=== PATIENT | female | born 2000 | race Caucasian/White ===

== ENCOUNTER → 2023-10-17 11:27 | Outpatient (CLI) | payer BC, SELFPAY ==
--- NOTE | ~2023-10-17 | US_ITS ---
EXAMINATION: US OB <= 14 weeks fetus DATE: 10/17/2023 11:48 INDICATION: viability assessment during first trimester TECHNIQUE: Real-time pelvic transabdominal and transvaginal ultrasound was performed. COMPARISON: None. FINDINGS: The uterus measures 12.7 x 6.1 x 6.7 cm. There is an intrauterine gestational sac. A yolk s ac is identified. heart motion is identified measuring 161 beats per minute (bpm) by M-mode Dop pler. The crown rump length measures 1.6 cm, which correlates with an estimated gestational age of 8 weeks and 0 day(s) (+/-) 5 day(s). The right ovary measures 3.8 x 2.4 x 3.0 cm. The left ovary measures 3.0 x 1.2 x 1.5 cm. There is nor mal vascular flow in the ovaries. There is no free fluid in the pelvis. IMPRESSION: 1. Live intrauterine with an estimated gestational age of 8 weeks and 0 day(s) (+/-) 5 day( s) and an estimated delivery date of 05/28/2024. Reviewed, dictated and finalized at location L. DAMAGE ESTIMATOR IMPRESSION: 1. Live intrauterine with an estimated gestational age of 8 weeks and 0 day(s) (+/-) 5 day(s) and an estimated delivery date of 05/28/2024.
== END ==
PROVIDERS: PCP Advanced Practice Midwife; Visit Provider Advanced Practice Midwife
DX: O36.80X0 Pregnancy with inconclusive fetal viability, not applicable or unspecified (principal); Z3A.00 Weeks of gestation of pregnancy not specified
CPT/HCPCS: 76801

== ENCOUNTER 2023-11-03 21:36 | Emergency (ER) | payer BC, SELFPAY ==
[2023-11-03 21:59] VITALS: BP 113/54; PULSE 58; RESP 20; TEMP 36.7; O2SAT 100
[2023-11-04 00:39] VITALS: BP 117/73; PULSE 63; RESP 16; O2SAT 100
[2023-11-04 01:01] VITALS: BP 121/69; PULSE 52; RESP 11; O2SAT 100
[2023-11-04] MEDS: SODIUM CHLORIDE 0.9% IV 1,000 ML 999 ML IV CONT ×2 (01:15)
[2023-11-04] MEDS: METOCLOPRAMIDE HCL INJ 10 MG/2 ML VIAL IV PUSH (01:15)
[2023-11-04 01:31] VITALS: BP 105/62; PULSE 75; RESP 22; O2SAT 100
[2023-11-04] MEDS: diphenhydrAMINE HCl INJ 50 MG/ML VIAL 25 MG IV PUSH (01:42)
[2023-11-04 01:43] LABS: Basophils Absolute Auto 0.1 K/mm3 (0.0-0.1); Basophils Percent Auto 0.4 % (0.2-1.2); Eosinophils Absolute Auto 0.1 K/mm3 (0-0.3); Eosinophils Percent Auto 0.5 % (0-4.4); Hematocrit 43.1 % (37.0-47.0); Hemoglobin 14.3 g/dL (12.0-15.0); Immature Granulocyte Absolute 0.05 K/mm3 (0.00-0.031); Immature Granulocyte Percent A 0.3 % (0-0.5); Lymphocytes Absolute Auto 2.17 K/mm3 (0.9-3.2); Lymphocytes Percent Auto 14.8 % (18.3-44.2); Mean Corpuscular HGB Conc 33.2 g/dl (32-36); Mean Corpuscular Hemoglobin 26.6 pg (26-34); Mean Corpuscular Volume 80.3 fl (80-100); Mean Platelet Volume 9.5 fl (7.4-10.4); Monocytes Percent Auto 6.5 % (2.6-8.5); Neutrophils Absolute Auto 11.4 K/mm3 (1.3-6.7); Neutrophils Percent Auto 77.5 % (45.5-73.1); Platelet Count Result 243 k/mm3 (150-375); Red Blood Count 5.37 M/mm3 (4.2-5.4); Red Cell Distribution Width 13.6 % (11.5-14.5); White Blood Count 14.7 K/mm3 (4.5-10.0)
[2023-11-04 01:49] LABS: Alanine Aminotransferase 60 U/L (6-35); Albumin Level 4.7 g/dL (3.5-5.1); Alkaline Phosphatase 69 U/L (38-126); Anion Gap 13 mmol/L (8-16); Aspartate Amino Transferase 43 U/L (14-36); Bilirubin,Total 0.7 mg/dL (0.2-1.3); Blood Urea Nitrogen 8 mg/dL (7-17); Carbon Dioxide 22 mmol/L (22-30); Chloride 102 mmol/L (98-107); Estimated CRCL calculation 124 ml/min; Estimated Glomerular Filt Rate > 60; Glucose 78 mg/dL (65-110); Lipase 115 U/L (23-300); Magnesium 1.8 mg/dL (1.6-2.3); Potassium 3.5 mmol/L (3.4-5.0); Sodium 137 mmol/L (137-145)
[2023-11-04 02:01] VITALS: BP 93/48; PULSE 65; RESP 22; O2SAT 100
[2023-11-04 02:04] LABS: Appearance Urine Cloudy (Clear); Bacteria Urine 3+ /hpf; Bilirubin Urine Negative (Negative); Blood Urine Negative (Negative); Color Urine Dark Yellow (Yellow); Glucose Urine UA Negative (Negative); Ketones Urine 4+ mg/dL (Negative); Leukocyte Esterase Ur 2+ LEU/UL (Negative); Need Manual Microscopic Reviewed; Nitrate Urine Negative (Negative); Protein Urine 1+ mg/dL (Negative); Specific Grav Ur 1.035 (1.001-1.035); Squamous Epithelial Cell Urine Many /hpf (Few); WBC Urine 51-100 /hpf; pH Urine 5.5 (5.0-9.0)
[2023-11-04 02:06] LABS: Add Urine Microscopic? YES
--- NOTE | 2023-11-04 02:40 | ED.GENADULT ---
HPI - General Adult General Chief complaint: Nausea/Vomiting/Diarrhea Stated complaint: vomiting Time Seen by Provider: 11/04/23 00:47 History of Present Illness HPI narrative: Patient is a 23-year-old female at 11 weeks presents emerged from with chief complaint of nausea vomiting patient reports that she has had an ultrasound that confirmed intrauterine and her OBs office the patient states she sees Dr. Pena reports she has not been able to keep any fluids down denies fever reports a little bit of cramping in the abdomen no vaginal bleeding Related Data Allergies Allergy/AdvReac Type Severity Reaction Status Date / Time No Known Allergies Allergy Mild Unverified 11/03/23 21:36 Review of Systems Review of Systems: A 10 system review of systems was completed on the patient and is negative except for what is stated in the HPI. Nursing and ancillary documentation was reviewed. Exam Narrative: GENERAL: Well-appearing, well-nourished, and in no acute distress. HEAD: Normocephalic, atraumatic. EYES: PERRLA and EOMI. ENT: Nares clear, no rhinorrhea or epistaxis. Mucous membranes dry. NECK: Supple. CHEST: Clear to auscultation. No respiratory distress. HEART: Regular rate and rhythm. No murmur heard. Normal peripheral pulses. ABDOMEN: Soft, nontender, nondistended, normal active bowel sounds. EXTREMITIES: Normal range of motion. No edema. SKIN: Warm, dry, no rash. NEURO: No focal deficits. Alert and oriented x3. PSYCH: Normal mood and affect. Course Vital Signs Vital signs: Vital Signs Temperature 36.7 C 11/03/23 21:59 Pulse Rate 58 L 11/03/23 21:59 Respiratory Rate 20 11/03/23 21:59 Blood Pressure 113/54 L 11/03/23 21:59 Pulse Oximetry 100 11/03/23 21:59 Oxygen Delivery Room Air 11/03/23 21:59 Temperature 36.7 C 11/03/23 21:59 Pulse Rate 54 L 11/04/23 03:01 Respiratory Rate 17 11/04/23 03:01 Blood Pressure 107/46 L 11/04/23 03:01 Pulse Oximetry 99 11/04/23 03:01 Oxygen Delivery Room Air 11/03/23 21:59 Medical Decision Making MDM Narrative Medical decision making narrative: Differential diagnosis includes hyperemesis, dehydration, viral syndrome, UTI Laboratory studies were obtained patient total white count of 14.7 electrolytes showed a CO2 of 22 creatinine of 0.6 lipase was 115 urinalysis showed 4+ ketones 2+ leukocyte esterase 50-100 white blood cells and 3+ bacteria Patient received 2 L of IV fluids in the emergency department received IV Reglan and Benadryl the patient reports that her nausea vomiting is doing much better at this time and would like to try p.o. intake. The patient was given a g Rocephin for urinary tract infection if the patient able tolerate p.o. patient be discharged home on Keflex Vital Signs Vital Signs: Vital Signs Temperature 36.7 C 11/03/23 21:59 Pulse Rate 58 L 11/03/23 21:59 Respiratory Rate 20 11/03/23 21:59 Blood Pressure 113/54 L 11/03/23 21:59 Pulse Oximetry 100 11/03/23 21:59 Oxygen Delivery Room Air 11/03/23 21:59 Temperature 36.7 C 11/03/23 21:59 Pulse Rate 54 L 11/04/23 03:01 Respiratory Rate 17 11/04/23 03:01 Blood Pressure 107/46 L 11/04/23 03:01 Pulse Oximetry 99 11/04/23 03:01 Oxygen Delivery Room Air 11/03/23 21:59 Lab Data 11/04/23 01:05 11/04/23 01:05 Labs: Lab Results 11/04/23 Range/Units 01:05 WBC 14.7 H (4.5-10.0) K/mm3 RBC 5.37 (4.2-5.4) M/mm3 Hgb 14.3 (12.0-15.0) g/dL Hct 43.1 (37.0-47.0) % MCV 80.3 (80-100) fl MCH 26.6 (26-34) pg MCHC 33.2 (32-36) g/dl RDW 13.6 (11.5-14.5) % Plt Count 243 (150-375) k/mm3 MPV 9.5 (7.4-10.4) fl Immature Gran % (Auto) 0.3 (0-0.5) % Neut % (Auto) 77.5 H (45.5-73.1) % Lymph % (Auto) 14.8 L (18.3-44.2) % [place] % (Auto) 6.5 (2.6-8.5) % Eos % (Auto) 0.5 (0-4.4) % Baso % (Auto) 0.4 (0.2-1.2) % Lymph # (Auto) 2.1
[2023-11-04 03:01] VITALS: BP 107/46; PULSE 54; RESP 17; O2SAT 99
[2023-11-04 03:49] VITALS: BP 98/57; PULSE 57; RESP 17; O2SAT 98
== END 2023-11-04 03:50 | disposition home or self-care (01) ==
PROVIDERS: Emergency Provider Emergency Medicine; PCP Emergency Medicine
DX: O23.41 Unspecified infection of urinary tract in pregnancy, first trimester (principal); N39.0 Urinary tract infection, site not specified; O21.9 Vomiting of pregnancy, unspecified; Z3A.11 11 weeks gestation of pregnancy
CPT/HCPCS: 36415; 80053; 81001; 83690; 83735; 85025; 87086; 87088; 96361; 96365; 96375; 99284; J0696; J1200; J2765; J7030

== ENCOUNTER → 2023-12-26 10:51 | Outpatient (CLI) | payer BC, SELFPAY ==
--- NOTE | ~2023-12-26 | US_ITS ---
EXAMINATION: US OB /maternal detail DATE: 12/26/2023 11:23 INDICATION: Second trimester anatomic survey TECHNIQUE: Real-time ultrasound of the pelvis was performed. COMPARISON: None. FINDINGS: There is a single living fetus in vertex presentation. The placenta is anterior and 5.4 cm from the i nternal cervical os. The measured cervical length is 5.0 cm. heart rate is 139 beats per minute (bpm). cardiac activity and movement are noted. The amniotic fluid index is subjectivel y normal. The outflow tracts of the heart are not well evaluated due to gestational age. The following an atomy was identified as normal: 4 chamber heart 3 vessel cord cord insertion kidneys urinary bladder stomach spine diaphragm ventricles cisterna magna cerebellum The following biometric data were obtained: Biparietal diameter (BPD): 4.1 cm; head circumference (HC): 15.3 cm; abdominal circumference (AC): 12 .2 cm; femur length (FL): 2.4 cm. These measurements are concordant. Estimated weight is 206 g +/- 31 g, which correlates with the 28th percentile when 05/28/2024 is used as estimated date of delivery. As single measurements, these parameters are each equal to the following estimated gestational ages w ith ranges of +/- 2 standard deviations: BPD: 18 weeks 3 days ( 16 weeks 5 days - 20 weeks 1 days). HC: 18 weeks 2 days ( 16 weeks 6 days - 19 weeks 6 days). AC: 17 weeks 6 days ( 16 weeks 1 days - 19 weeks 4 days). FL: 17 weeks 3 days ( 16 weeks 0 days - 18 weeks 5 days). estimated gestational age based solely on measurements from this exam is 18 weeks 0 days +/- 1 weeks 2 days. IMPRESSION: 1. Single living fetus in vertex presentation. 2. Estimated weight is 206 g +/- 31 g, which correlates with the 28th percentile when 05/28/2024 is used as estimated date of delivery. Reviewed, dictated and finalized at location L. CTOR DIGITAL CATALOGUE IMPRESSION: 1. Single living fetus in vertex presentation. 2. Estimated weight is 206 g +/- 31 g, which correlates with the 28th per centile when 05/28/2024 is used as estimated date of delivery.
== END ==
PROVIDERS: PCP Advanced Practice Midwife; Visit Provider Advanced Practice Midwife
DX: Z36.9 Encounter for antenatal screening, unspecified (principal)
CPT/HCPCS: 76805

== ENCOUNTER 2024-03-22 05:26 | Observation (INO) | payer BC, SELFPAY ==
[2024-03-22] VITALS (16 sets, daily range): BP systolic 88–119; BP diastolic 28–68; PULSE 79–131; RESP 20; TEMP 36.9; O2SAT 99–100
--- NOTE | ~2024-03-22 | US_ITS ---
Limited Abdominal Sonogram: Real-time sonographic imaging of the right upper quadrant was performed. Clinical History: Abdominal pain Findings: The liver appears normal with no evidence of mass lesion or bile duct dilatation. Main por jeronimo vein demonstrates normal direction of flow. The gallbladder is well distended, and appears normal with no evidence of gallstone or wall thickening. The common bile duct is not well seen, but there i s no clear dilatation. The visualized pancreas, aorta, and IVC are unremarkable. Impression: No significant abnormality seen. Reviewed, dictated and finalized at location M. Impression: No significant abnormality seen.
--- NOTE | 2024-03-22 07:00 | OBADM ---
This patient, Penny Raymond, admitted to the OB room OB Post 117 for observation. Patient/family oriented to hospital policies and general routines including ID bracelet, bed and alarms, visiting hours, pain management, procedures, bathroom and other care routines, personal items, smoking policy, room service/diet, and visiting hours. Patient/Family are encouraged to report perceived risks to care and to ask questions if they do not understand what they are told or what they should do.
[2024-03-22] MEDS: DEXTROSE 5%/LACTATED RINGERS 1,000 ML 999 ML IV CONT (07:08)
[2024-03-22] MEDS: ONDANSETRON INJ 4 MG/2 ML VIAL IV PUSH ×3 (07:08→16:09)
[2024-03-22 07:30] LABS: Basophils Percent Auto 0.2 % (0.2-1.2); Eosinophils Percent Auto 0.2 % (0-4.4); Hematocrit 35.9 % (37.0-47.0); Hemoglobin 11.6 g/dL (12.0-15.0); Immature Granulocyte Absolute 0.08 K/mm3 (0.00-0.031); Immature Granulocyte Percent A 0.6 % (0-0.5); Lymphocytes Absolute Auto 0.35 K/mm3 (0.9-3.2); Lymphocytes Percent Auto 2.7 % (18.3-44.2); Mean Corpuscular HGB Conc 32.3 g/dl (32-36); Mean Corpuscular Hemoglobin 26.2 pg (26-34); Mean Corpuscular Volume 81.2 fl (80-100); Mean Platelet Volume 9.5 fl (7.4-10.4); Monocytes Absolute Auto 0.6 K/mm3 (0.1-0.6); Monocytes Percent Auto 4.5 % (2.6-8.5); Neutrophils Absolute Auto 11.8 K/mm3 (1.3-6.7); Neutrophils Percent Auto 91.8 % (45.5-73.1); Platelet Count Result 226 k/mm3 (150-375); Red Blood Count 4.42 M/mm3 (4.2-5.4); Red Cell Distribution Width 12.6 % (11.5-14.5); White Blood Count 12.9 K/mm3 (4.5-10.0)
[2024-03-22 07:32] LABS: Alanine Aminotransferase 18 U/L (6-35); Albumin Level 3.7 g/dL (3.5-5.1); Alkaline Phosphatase 98 U/L (38-126); Anion Gap 8 mmol/L (4-12); Aspartate Amino Transferase 23 U/L (14-36); Bilirubin,Total 0.6 mg/dL (0.2-1.3); Blood Urea Nitrogen 10 mg/dL (7-17); Calcium 8.9 mg/dL (8.4-10.2); Carbon Dioxide 19 mmol/L (22-30); Chloride 109 mmol/L (98-107); Estimated Glomerular Filt Rate > 60; Glucose 92 mg/dL (65-110); Potassium 3.5 mmol/L (3.4-5.0); Sodium 136 mmol/L (137-145)
[2024-03-22] MEDS: DEXTROSE 5%/LACTATED RINGERS 1,000 ML 150 ML IV CONT (09:02)
[2024-03-22] MEDS: FAMOTIDINE 20 MG/2 ML VIAL IV PUSH (09:03)
--- NOTE | 2024-03-22 09:11 | PC.NURSE ---
Patient informed of lab results and US results. Patient states that she is feeling a little better, but the nausea still comes in waves.
--- NOTE | 2024-03-22 09:13 | PC.NURSE ---
Dr Pena informed of periods of cont nausea, lab results and US results. Orders to cont with IV hydration and may dc home when patient is feeling a bit better.
--- NOTE | 2024-03-22 14:30 | PC.NURSE ---
Patient states that she is feeling a bit better, wanting to try to eat some crackers and see how that goes.
--- NOTE | 2024-03-25 09:00 | P.PNOB_ITS ---
OB - Triage/Final Diagnosis Visit Information Reason for evaluation: other ( nausea and vomiting secondary to viral gastroente ritis in ) Comments/Additional reasons for admission: I have assessed the risk for this patient, Penny Raymond, and determined that she would benefit from observation care. Evaluation Laboratory results: Laboratory Tests 03/22/24 07:10 WBC 12.9 H RBC 4.42 Hgb 11.6 L Hct 35.9 L MCV 81.2 MCH 26.2 MCHC 32.3 RDW 12.6 Plt Count 226 MPV 9.5 Immature Gran % (Auto) 0.6 H Neut % (Auto) 91.8 H Lymph % (Auto) 2.7 L [place] % (Auto) 4.5 Eos % (Auto) 0.2 Baso % (Auto) 0.2 Lymph # (Auto) 0.35 L [place] # (Auto) 0.6 Eos # (Auto) 0.0 Baso # (Auto) 0.0 Abs Immat Gran (auto) 0.08 H Absolute Neuts (auto) 11.8 H Absolute Nucleated RBC 0.000 Nucleated RBC % 0.0 Sodium 136 L Potassium 3.5 Chloride 109 H Carbon Dioxide 19 L Anion Gap 8 BUN 10 Creatinine 0.60 L Estim Creat Clear Calc Not Reportable Estimated GFR > 60 Glucose 92 Calcium 8.9 Total Bilirubin 0.6 AST 23 ALT 18 Alkaline Phosphatase 98 Total Protein 7.0 Albumin 3.7
== END 2024-03-22 16:11 | disposition home or self-care (01) ==
PROVIDERS: Admitting Provider Obstetrics & Gynecology Gynecology; PCP Advanced Practice Midwife; Visit Provider Obstetrics & Gynecology Gynecology
DX: O99.613 Diseases of the digestive system complicating pregnancy, third trimester (principal); A08.4 Viral intestinal infection, unspecified; Z3A.30 30 weeks gestation of pregnancy
CPT/HCPCS: 36415; 76705; 80053; 85025; 96361; 96368; 96374; 96375; G0378; G0379; J2405; J7121

== ENCOUNTER 2024-04-17 11:17 | Outpatient (CLI) | payer BC, SELFPAY ==
--- NOTE | ~2024-04-17 | US_ITS ---
EXAMINATION: US OB follow up DATE: 04/17/2024 11:42 INDICATION: Estimated size less than expected for estimated gestational age during third trimes ter TECHNIQUE: Real-time ultrasound of the pelvis was performed. The interpreting radiologist was not pre sent for the study. COMPARISON: None. FINDINGS: There is a single living fetus in vertex presentation. The placenta is anterior and not low-lying al though the region of the cervix is obscured by the skull. heart rate is 130 beats per min holly (bpm). The amniotic fluid index is 17.4 cm, which is normal (5th%-95%: 8.1-24.8 cm at 33 weeks e stimated gestational age). The following biometric data were obtained: BPD: 8.4 cm -> 33 weeks 6 days Head circumference: 31.0 cm -> 34 weeks 5 days Abdominal circumference: 29.3 cm -> 33 weeks 2 days Femur length: 6.1 cm -> 31 weeks 4 days These measurements are concordant. Head circumference to abdominal circumference ratio: 1.06 (normal range 0.95-1.11). Estimated weight: 2092 g (+/-) 314 g or 4 lbs. 10 oz. (+/-) 11 oz. IMPRESSION: 1. Single living fetus in vertex presentation with heart rate of 130 bpm. 2. Normal amniotic fluid index of 17.4 cm. 3. Estimated weight is 15th percentile by Hadlock criteria when 05/28/2024 is used as the estima stewart date of delivery (RACHEL). Please correlate with clinical information or earlier ultrasounds for mos t accurate RACHEL. Reviewed, dictated and finalized at location A. IMPRESSION: 1. Single living fetus in vertex presentation with heart rate of 130 bpm. 2. Normal amniotic fluid index of 17.4 cm. 3. Estimated weight is 15th percentile by Hadlock criteria when 05/28/2024 is used as the estimated date of delivery (RACHEL). Please correlate with clinica l information or earlier ultrasounds for most accurate RACHEL.
== END 2024-04-17 11:18 ==
LOC: MICIMG 11:18
PROVIDERS: PCP Advanced Practice Midwife; Visit Provider Advanced Practice Midwife
DX: O36.5930 Maternal care for other known or suspected poor fetal growth, third trimester, not applicable or unspecified (principal); Z3A.00 Weeks of gestation of pregnancy not specified
CPT/HCPCS: 76816

== ENCOUNTER 2024-05-20 04:54 | Inpatient (IN) | payer BC, SELFPAY ==
[2024-05-20] VITALS (124 sets, daily range): BP systolic 66–162; BP diastolic 43–108; PULSE 47–201; RESP 17; TEMP 36.3–37.3; O2SAT 92–100; BMI 28.8
[2024-05-20 05:37] LABS: Basophils Absolute Auto 0.1 K/mm3 (0.0-0.1); Basophils Percent Auto 0.6 % (0.2-1.2); Eosinophils Absolute Auto 0.2 K/mm3 (0-0.3); Eosinophils Percent Auto 1.7 % (0-4.4); Hematocrit 32.7 % (37.0-47.0); Hemoglobin 10.5 g/dL (12.0-15.0); Immature Granulocyte Absolute 0.08 K/mm3 (0.00-0.031); Immature Granulocyte Percent A 0.7 % (0-0.5); Lymphocytes Percent Auto 23.3 % (18.3-44.2); Mean Corpuscular HGB Conc 32.1 g/dl (32-36); Mean Corpuscular Hemoglobin 24.2 pg (26-34); Mean Corpuscular Volume 75.3 fl (80-100); Mean Platelet Volume 9.6 fl (7.4-10.4); Monocytes Absolute Auto 0.9 K/mm3 (0.1-0.6); Monocytes Percent Auto 7.5 % (2.6-8.5); Neutrophils Absolute Auto 7.7 K/mm3 (1.3-6.7); Neutrophils Percent Auto 66.2 % (45.5-73.1); Platelet Count Result 235 k/mm3 (150-375); Red Blood Count 4.34 M/mm3 (4.2-5.4); Red Cell Distribution Width 14.1 % (11.5-14.5); White Blood Count 11.6 K/mm3 (4.5-10.0)
--- NOTE | 2024-05-20 05:38 | LDADM ---
This patient, Penny Raymond, was admitted to Labor/Delivery/Recovery 108 on 05/20/24 at 04:54. Plans for labor, pain management and were discussed with patient. Patient/family oriented to hospital policies and general routines including ID bracelet, bed and alarms, visiting hours, pain management, procedures, bathroom and other care routines, personal items, smoking policy, room service/diet and guest tray routines, security routines, and visiting hours. Patient/Family are encouraged to report perceived risks to care and to ask questions if they do not understand what they are told or what they should do. See OBIX for further documentation.
[2024-05-20] MEDS: LACTATED RINGERS 1,000 ML 125 ML IV CONT ×2 (05:56→08:59)
[2024-05-20] MEDS: OXYTOCIN 30 UNITS/NS 500 ML 30 UNITS/500 ML BAG 6 UNITS IV CONT (05:56)
[2024-05-20 06:29] LABS: HIV 1/2 Ab P24 Ag Result Negative (Negative)
[2024-05-20] MEDS: ONDANSETRON INJ 4 MG/2 ML VIAL IV PUSH (06:45)
[2024-05-20 07:11] LABS: Rapid Plasma Reagin Non-Reactive (NonReactive)
[2024-05-20] MEDS: fentaNYL CITRATE INJ (*CRX) 100 MCG/2 ML VIAL 50 MCG IV PUSH (08:56)
--- NOTE | 2024-05-20 09:27 | WPDANESEPP ---
Anes - Eval Pre Procedure Procedure: Labor Epidural Date/Time: 05/20/24 09:27 Surgeon: Becky Preop Diagnosis: Labor Pain Pre Op Diagnosis: IOL Patient Data Age: 24 Gender: F Height: 1.63 m Weight: 76 kg Last Vital Signs Temp 36.4 C 05/20/24 07:42 Pulse 76 05/20/24 09:24 BP 103/47 L 05/20/24 09:24 Pulse Ox 97 05/20/24 09:26 O2 Del Method Room Air 05/20/24 05:00 Allergies Allergy/AdvReac Type Severity Reaction Status Date / Time No Known Allergies Allergy Mild Verified 04/30/24 13:23 Home Medications Medication Instructions Recorded Confirmed Type ondansetron 4 mg disintegrating 4 mg PO Q6H PRN Nausea #10 tabs 03/22/24 04/30/24 Rx tablet vits no.126-ferrous fum 1 tablet PO DAILY 04/30/24 04/30/24 History 28 mg iron-folic acid 800 mcg tablet (Classic ) Laboratory Tests 05/20/24 05/20/24 05:06 07:28 WBC 11.6 H K/mm3 (4.5-10.0) RBC 4.34 M/mm3 (4.2-5.4) Hgb 10.5 L g/dL (12.0-15.0) Hct 32.7 L % (37.0-47.0) MCV 75.3 L fl (80-100) MCH 24.2 L pg (26-34) MCHC 32.1 g/dl (32-36) RDW 14.1 % (11.5-14.5) Plt Count 235 k/mm3 (150-375) MPV 9.6 fl (7.4-10.4) Immature Gran % (Auto) 0.7 H % (0-0.5) Neut % (Auto) 66.2 % (45.5-73.1) Lymph % (Auto) 23.3 % (18.3-44.2) [place] % (Auto) 7.5 % (2.6-8.5) Eos % (Auto) 1.7 % (0-4.4) Baso % (Auto) 0.6 % (0.2-1.2) Lymph # (Auto) 2.70 K/mm3 (0.9-3.2) [place] # (Auto) 0.9 H K/mm3 (0.1-0.6) Eos # (Auto) 0.2 K/mm3 (0-0.3) Baso # (Auto) 0.1 K/mm3 (0.0-0.1) Abs Immat Gran (auto) 0.08 H K/mm3 (0.00-0.031) Absolute Neuts (auto) 7.7 H K/mm3 (1.3-6.7) Absolute Nucleated RBC 0.000 K/mm3 (0.0-0.012) Nucleated RBC % 0.0 % (0.0-0.2) RPR Non-reactive (NonReactive) HIV 1&2 Ab/P24 Ag 4thGn Negative (Negative) Blood Type A Positive Antibody Screen Negative : gestational age (RACHEL 05/25/24, ) Patient hx anesthesia problems: none Family hx anesthesia problems: none Results Review: All pre-operative results and documents have been reviewed as part of the pre-operative evaluation. FORMERLY [facility], [facility] Family History Family History Other No pertinent family history Social History Social History Smoking status: Never smoker Second hand tobacco smoke exposure: No Substance use: never Do You Feel Safe in your Home?: Yes Lack of Transportation: No Lack of Food: Never True Current Housing: I Have Housing Concerned About Future Housing: No Difficulty Paying Gas/Electric Bills: No Difficulty Paying for Meds: No Currently Unemployed: YES Education: High School Diploma/GED Difficulty w/ Childcare or Family Care: No Spiritual care concerns: No Exam Day of Procedure 05/20/24 09:27 Patient weight: normal Heart: regular rate and rhythm Lungs: normal air movement Airway: Mallampati scale class II Neurological: alert and oriented
--- NOTE | 2024-05-20 10:03 | WPDOBADMIT ---
Obstetrics - Admit Note Admission Note: record reviewed. No pertinent additions to the history and/or any subsequent changes in the physical findings that are not consistent with the expected course of the were found. Additions to the history and/or subsequent changes in the physical findings follow. Here for MIL. Cervix 2-3/50/-2 Vertex, AROM with clear fluid. FHTs category I. Continue pitocin.
--- NOTE | 2024-05-20 14:22 | P.PCNOB_ITS ---
OB - Vaginal Delivery Note Procedure Delivery date: 05/20/24 Induction method: AROM and Per Pitocin Protocol Delivery monitor: External FHT and External Uterine Route of delivery: Episiotomy description: None Laceration Description: Perineal - 2nd Degree Delivery repair: vicryl (3-0) Specimen: No Quantitative Blood Loss (ml): 500 Anesthesia type: Epidural Disposition: Floor Complications: No immediate complications [place] Baby Date of : 05/20/24 Weeks of gestation at delivery: 39 gender: Male presentation: vertex position: Right Occiput Anterior Placenta delivery description: Spontaneous Cord Vessel Description: 3 Vessels, Nuchal Cord (x2), Reduced (x1) and Delayed Cord Clamping score one minute: 8 score five minutes: 9
--- NOTE | 2024-05-20 14:23 | PM.OBDSVD ---
DS: Admitting Diagnosis Discharge Date 05/22/24 Admitting Diagnosis IUP 39 wks MIL DS: Discharge Diagnosis Discharge Diagnosis (1) (normal spontaneous vaginal delivery): Code(s): O80 - Encounter for full-term uncomplicated delivery Status: Acute OB - DS: Summary OB Procedures : Ultrasound OB Procedures Intrapartum: Spontaneous Vag Delivery OB Procedures: : None Peripartum Data Infant Delivery Method: Natural Vaginal Laceration Description: Perineal - 2nd Degree Episiotomy description: None complications: none Status at Discharge Functional status at discharge: independent ambulation Overall status at discharge: patient is progressing back to baseline Time Spent with Patient Time attestation: Total time spent providing and/or coordinating discharge services: DS: Data Data Completed and Pending Labs on day of discharge: Labs from last 24 hours 05/20/24 05/20/24 07:28 05:06 WBC 11.6 H RBC 4.34 Hgb 10.5 L Hct 32.7 L MCV 75.3 L MCH 24.2 L MCHC 32.1 RDW 14.1 Plt Count 235 MPV 9.6 Immature Gran % (Auto) 0.7 H Neut % (Auto) 66.2 Lymph % (Auto) 23.3 [place] % (Auto) 7.5 Eos % (Auto) 1.7 Baso % (Auto) 0.6 Lymph # (Auto) 2.70 [place] # (Auto) 0.9 H Eos # (Auto) 0.2 Baso # (Auto) 0.1 Abs Immat Gran (auto) 0.08 H Absolute Neuts (auto) 7.7 H Absolute Nucleated RBC 0.000 Nucleated RBC % 0.0 RPR Non-reactive HIV 1&2 Ab/P24 Ag 4thGn Negative Blood Type A Positive Antibody Screen Negative Discharge Plan Discharge Attending physician on discharge: Nahomy Pena Discharging Clinician: Nahomy Pena Anticipated Discharge Date/Time: 05/22/24 14:24 Patient Disposition: Home, Self-Care Activity: may shower and pelvic rest Diet: regular Patient Instructions: Antibiotic Form Stand Alone Forms: General Discharge Information Follow-up/Referrals: Nahomy Pena MD [Physician] - 6 Weeks Discharge Medications: Continued Classic 28 mg iron- 800 mcg Tablet 1 tablet PO DAILY Discontinued ondansetron 4 mg Tablet,Disintegrating 4 mg PO Q6H PRN (Reason: Nausea) Qty: 10 0RF Date of admission: 05/20/24 04:54 Primary Care Provider: Uzair,Adama Mena Admitting Provider: Nahomy Pena Attending physician on admission: Nahomy Pena Condition: Stable
[2024-05-20] MEDS: OXYTOCIN 30 UNITS/NS 500 ML 30 UNITS/500 ML BAG 999 UNITS IV CONT (14:42)
[2024-05-20] MEDS: ACETAMINOPHEN 325 MG TABLET 650 MG PO (15:48)
--- NOTE | 2024-05-20 17:40 | OBPPTRN ---
Patient transferred to post room #292 via wheelchair. Support person present. Oriented to unit, room, information board, rooming in, admission packet and security measures. Patient verbalizes understanding.
[2024-05-20] MEDS: IBUPROFEN 600 MG TABLET PO (18:55)
[2024-05-20] MEDS: CALCIUM CARBONATE (TUMS) 500 MG (200 MG ELEMENTAL) PO (19:44)
[2024-05-21] VITALS: BP 96/61; PULSE 85; RESP 16; TEMP 36.6; O2SAT 99
[2024-05-21] MEDS: ONDANSETRON INJ 4 MG/2 ML VIAL IV PUSH (02:13)
[2024-05-21] MEDS: CALCIUM CARBONATE (TUMS) 500 MG (200 MG ELEMENTAL) PO (02:14)
[2024-05-21] MEDS: ACETAMINOPHEN 325 MG TABLET 650 MG PO ×2 (02:14→18:58)
[2024-05-21 05:42] LABS: Hematocrit 27.4 % (37.0-47.0); Hemoglobin 8.4 g/dL (12.0-15.0)
[2024-05-21 07:05] VITALS: BP 97/45; PULSE 57; RESP 16; TEMP 36.6; O2SAT 99
[2024-05-21] MEDS: IBUPROFEN 600 MG TABLET PO (07:22)
[2024-05-21] MEDS: MULTIVIT/MIN/PREN/FOL AC/IRON TABLET 1 TAB PO (07:23)
[2024-05-21] MEDS: SIMETHICONE 80 MG TAB.CHEW PO (07:24)
[2024-05-21] MEDS: DOCUSATE SODIUM 100 MG CAPSULE PO ×2 (07:24→15:21)
[2024-05-21] MEDS: POLYSACCHARIDE IRON COMPLEX 150 MG CAPSULE PO ×2 (07:24→15:21)
--- NOTE | 2024-05-21 07:46 | PM.OBPNVD ---
OB - PN: Subj Subjective Date/time seen: 05/21/24 07:46 Patient comments: no complaints and pain well controlled baby status: doing well OB - PN: Obj Data Labs 05/21/24 04:05 Labs: Laboratory Results - last 24 hr 05/20/24 05/21/24 07:28 04:05 Hgb 8.4 L Hct 27.4 L Blood Type A Positive Antibody Screen Negative OB - PN A/P Plan day: 1 Plan: routine care Time Spent With Patient Time: Total time spent is greater than 50% in coordination of care (as documented) at patient's floor/unit and/or counseling patient: Exam : Bimanual exam- vagina & uterus: other (Uterus firm, nt @U)
--- NOTE | 2024-05-21 09:45 | PC.NURSE ---
Mother verbalizes she is able to independently latch with appropriate positioning and alignment. She has some nipple soreness and is responsively . is currently meeting outcomes for weight, output, jaundice, blood sugar and feeding frequencies of 8-12 times in 24 hours. Encouraged mother to call out today for a latch check. Mother declines any additional assistance or education at this time. Mother is encouraged to call for assistance if her infant doesn?t latch, pain with latching, questions or concerns. Mother voiced understanding of information shared along with the mom/baby guide for an additional resource. Reported to the Primary RN.
--- NOTE | 2024-05-21 11:10 | WPDANLDPN2 ---
Anes-Prog Note L&D Date/Time: 05/21/24 11:10 Comfortable throughout: labor and delivery Neuraxial method: epidural Epidural/Spinal procedure site: tender Neuro status: Neuro function grossly intact. Cardiovascular status: normal Respiratory status: normal Airway patency: baseline Mental status: baseline Post-Op hydration status: normal Vital Signs: Last Vital Signs Temp 36.6 C 05/21/24 07:05 Pulse 57 L 05/21/24 07:05 Resp 16 05/21/24 07:05 BP 97/45 L 05/21/24 07:05 Pulse Ox 99 05/21/24 07:05 O2 Del Method Room Air 05/21/24 07:24 Pain score (VAS): 5/10 I/O: Intake & Output 05/20/24 05/21/24 05/21/24 23:59 07:59 15:59 Output Total 50 Balance -50 Post-procedural complaints: none Patient feedback: Patient satisfied with anesthetic care.
[2024-05-21 11:58] VITALS: BP 110/58; PULSE 77; RESP 16; TEMP 36.7; O2SAT 100
[2024-05-21 20:00] VITALS: BP 111/66; PULSE 78; RESP 18; TEMP 37.1; O2SAT 98
[2024-05-22] MEDS: ONDANSETRON HCL ODT 4 MG TABLET PO (04:19)
[2024-05-22] MEDS: CALCIUM CARBONATE (TUMS) 500 MG (200 MG ELEMENTAL) PO (04:19)
--- NOTE | 2024-05-22 07:33 | PM.OBPNVD ---
OB - PN: Subj Subjective Date/time seen: 05/22/24 07:33 Patient comments: no complaints and pain well controlled baby status: doing well OB - PN: Obj Data Labs 05/21/24 04:05 OB - PN A/P Plan day: 2 Plan: routine care and follow up 6 weeks Time Spent With Patient Time: Total time spent is greater than 50% in coordination of care (as documented) at patient's floor/unit and/or counseling patient: Exam : Bimanual exam- vagina & uterus: other (Uterus firm, nt @U)
[2024-05-22 09:00] VITALS: BP 104/56; PULSE 66; RESP 16; TEMP 36.6; O2SAT 100
--- NOTE | 2024-05-22 09:35 | PC.NURSE ---
Consulted with mother concerning needs and she shared her ability to independently latch infant optimally without consistent pain or pinching. Mom does have initial latch on tenderness that dissipates with feeding. Mother is feeding appropriately for growth of infant and understands stimulating infant to eat if needed. Mother has done some combo feeding, reviewed supply and demand an continuing frequent breast stimulation for good milk production. has had appropriate feedings in the last 24 hours meets the outcomes for weight, output, blood sugar and jaundice at this time. Reinforced understanding of milk production, transition of milk, signs of adequate intake, transition of stool, prevention/relief of engorgement, responsive watching for feeding cues, the different methods of stimulating infant to breastfeed 1-3 hours after the start of the last feeding, community resources, and when to call a provider using the resource of the feeding sheet along with the mom and baby guide. Mother voiced understanding of the information shared, is confident to continue effectively her infant at home, when to call for assistance, denies any additional assistance or education at this time. Reported to the Primary RN.
[2024-05-22] MEDS: IBUPROFEN 600 MG TABLET PO (09:41)
[2024-05-22] MEDS: ACETAMINOPHEN 325 MG TABLET 650 MG PO (09:42)
[2024-05-22] MEDS: MULTIVIT/MIN/PREN/FOL AC/IRON TABLET 1 TAB PO (09:43)
[2024-05-22] MEDS: POLYSACCHARIDE IRON COMPLEX 150 MG CAPSULE PO (09:43)
[2024-05-22] MEDS: DOCUSATE SODIUM 100 MG CAPSULE PO (09:44)
[2024-05-22] MEDS: WITCH HAZEL 40 PADS 1 PAD TOPICAL (09:55)
[2024-05-22] MEDS: BENZOCAINE 20% AER SPR (*SP) 56 GM CAN 1 SPRAY TOPICAL (09:55)
[2024-05-23 10:55] VITALS: BP 116/58; PULSE 53; RESP 18; TEMP 36.4; O2SAT 100
== END 2024-05-22 14:05 | disposition home or self-care (01) | DRG 807 ==
LOC: ANHLDR 14:24 → ANHOB2 17:44
PROVIDERS: Admitting Provider Obstetrics & Gynecology Gynecology; PCP Emergency Medicine; Visit Provider Obstetrics & Gynecology Gynecology
DX: O69.81X0 Labor and delivery complicated by cord around neck, without compression, not applicable or unspecified (principal); Z37.0 Single live birth; O70.1 Second degree perineal laceration during delivery; Z3A.39 39 weeks gestation of pregnancy
CPT/HCPCS: 36415; 85014; 85018; 85025; 86592; 86703; 86850; 86900; 86901; A9270; G0432; J2405; J2590; J2795; J3010; J7120

== ENCOUNTER 2025-08-23 11:33 | Emergency (ER) | payer BC, SELFPAY ==
--- NOTE | ~2025-08-23 | XR_ITS ---
Examination: XR chest 2V Clinical History: cough, FEVER Comparison: None Technique: PA and Lateral Findings: Cardiomediastinal silhouette normal size and configuration. Patchy opacity right upper lobe. No acute bony abnormality. IMPRESSION: 1. Right upper lobe pneumonia. Reviewed, dictated and finalized at location R.
[2025-08-23 12:40] VITALS: BP 107/47; PULSE 50; RESP 18; O2SAT 98
[2025-08-23 12:45] VITALS: O2SAT 97
--- NOTE | 2025-08-23 13:24 | ED.URI ---
HPI - URI/Sore Throat General Chief Complaint: Upper Respiratory Infection Stated Complaint: Fever, cough, congestion, Time Seen by Provider: 08/23/25 12:16 History of Present Illness HPI Narrative: This is a 25-year-old female with no significant past medical history presents to ED for cough and fever. Patient states that for the past few days, she has been on getting a cough but this became worse yesterday and is now productive of yellow-green sputum. She also developed fevers has 103.3. She continues having symptoms today prompting her to come to the ED. she is a non smoker. Related Data Home Medications ?Medication ?Instructions ?Recorded ?Confirmed ?Last Taken ?Type vits no.126-ferrous fum 1 tablet PO DAILY 04/30/24 04/30/24 1 Day Ago History 28 mg iron-folic acid 800 mcg ~04/29/24 tablet (Classic ) Allergies Allergy/AdvReac Type Severity Reaction Status Date / Time No Known Allergies Allergy Mild Verified 08/23/25 11:35 Review of Systems Review of Systems: Gen.: Denies fevers or chills Eyes: Denies eye pain or visual change ENT: Denies congestion Respiratory: As per HPI CV: Denies chest pain or palpitations GI: Denies abdominal pain nausea, emesis or diarrhea denies burning, urgency, frequency or hematuria Musculoskeletal: Denies back pain or muscle pain Neuro: Denies numbness, tingling, weakness or focal weakness Skin: Denies rash Except as documented, all other systems reviewed and negative [facility] Family History Family History Other No pertinent family history Social History Social History Smoking status: Never smoker Second hand tobacco smoke exposure: No Substance use: never Do You Feel Safe in your Home?: Yes Lack of Transportation: No Lack of Food: Never True Current Housing: I Have Housing Concerned About Future Housing: No Difficulty Paying Gas/Electric Bills: No Difficulty Paying for Meds: No Currently Unemployed: YES Education: High School Diploma/GED Difficulty w/ Childcare or Family Care: No Spiritual care concerns: No Exam Narrative: APPEARANCE: No acute distress, nontoxic, resting in bed EYES: EOMI HEENT: Normocephalic, atraumatic, OMM RESPIRATORY: No respiratory distress. faint rhonchi in the right upper lobe CARDIOVASCULAR: Regular rate and rhythm without murmurs rubs or gallops. ABDOMINAL: Soft, nontender, nondistended, no rebound or guarding MUSCULOSKELETAl: Moves all extremities. No clubbing, cyanosis or edema. NEURO: Awake and alert. Following commands, speech normal, no focal deficits SKIN:: Warm, dry. No rashes lesions or abrasions PSYCHIATRIC: Normal affect/mood, Course Vital Signs Vital signs: Vital Signs Pulse Rate 50 L 08/23/25 12:40 Respiratory Rate 18 08/23/25 12:40 Blood Pressure 107/47 L 08/23/25 12:40 Pulse Oximetry 98 08/23/25 12:40 Oxygen Delivery Room Air 08/23/25 12:40 Pulse Rate 50 L 08/23/25 12:40 Respiratory Rate 18 08/23/25 12:40 Blood Pressure 107/47 L 08/23/25 12:40 Pulse Oximetry 97 08/23/25 12:45 Oxygen Delivery Room Air 08/23/25 12:45 MDM - URI/Sore Throat MDM Narrative Medical decision making narrative: 25-year-old female presenting for flu-like symptoms. On initial evaluation, patient was in no acute distress, afebrile, hemodynamically stable. She did have faint rhonchus to her right upper lobe. Remaining exam within normal limits. Chest x-ray did reveal right upper lobe pneumonia. COVID/flu/RSV negative. Patient is otherwise healthy. She will be given a prescription for Augmentin. She was advised follow-up with her PCP in the next week for re-evaluation. Patient was agreeable to this plan. Given strict return precautions. Differential Diagnosis Differential diagnosis: Likely upper respiratory infection, sinusitis, viral infection, bronchitis, influenza and other (CAP) Medical Records Attestation: I reviewed the patient's medical records. Lab Data Attestation: I reviewed the patient's lab results. Labs: Lab Results 08/23/25 Range/Units 12:43 Influenza A (RT-PCR) Negative (Negative) Influenza B (RT-PCR) Negative (Negative) RSV (RT-PCR) Negative (Negative) SARS-CoV-2 RNA (RT-PCR) Negative (Negative) Imaging Data Attestation: I personally reviewed and interpreted this imaging study as follows: Radiologist's impression: Impressions Chest X-Ray 08/23/25 13:05 IMPRESSION: 1. Right upper lobe pneumonia. Discharge Plan Discharge Clinical Impression: CAP (community acquired pneumonia) Qualifiers: Laterality: right Lung location: upper lobe of lung Qualified Code(s): J18.9 - Pneumonia, unspecified organism Patient Disposition: Home Condition: Stable Instructions: Antibiotic Form, Community Acquired Pneumonia (ED) Additional Instructions: take augmentin as prescribed. Take tylenol and ibuprofen for fever and discomfort. Follow up with your PCP in the next week for reevaluation. Return to the ED for new or worsening symptoms. Patient Language: Korean Prescriptions: New amoxicillin-pot clavulanate 875-125 mg tablet 1 tablet PO Q12H Qty: 14 0RF No Action Classic 28 mg iron- 800 mcg Tablet 1 tablet PO DAILY Follow-up/Referrals: Uzair,Adama Mena MD [Primary Care Provider, Unknown]
[2025-08-23 13:28] LABS: Influenza A QL RT-PCR Negative (Negative); Influenza B QL RT-PCR Negative (Negative); RSV RNA, RT-PCR Negative (Negative); SARS-CoV-2 RNA PCR Negative (Negative)
== END 2025-08-23 14:07 | disposition home or self-care (01) ==
PROVIDERS: Emergency Provider Student in an Organized Health Care Education/Training Program; PCP Emergency Medicine
DX: J18.9 Pneumonia, unspecified organism (principal)
CPT/HCPCS: 71046; 87637; 99283

== ENCOUNTER 2025-08-26 16:36 | Emergency (ER) | payer BC, SELFPAY ==
[2025-08-26] VITALS (14 sets, daily range): BP systolic 107–130; BP diastolic 63–79; PULSE 79–121; RESP 13–36; TEMP 37.3; O2SAT 95–100
--- NOTE | ~2025-08-26 | XR_ITS ---
XR chest 1V portable INDICATION:shortness of breath . REFERENCE: None FINDINGS: A single AP of the chest demonstrates normal heart size. Patchy airspace opacity within the right upper and right lower lobe is noted. There is no evidence of pneumothorax or pleural effusion. IMPRESSION: Patchy airspace opacity in the right upper and right lower lobe suggestive of pneumonia. Reviewed, dictated and finalized at location S. IMPRESSION: Patchy airspace opacity in the right upper and right lower lobe suggestive of p neumonia.
--- NOTE | ~2025-08-26 | CT_ITS ---
CTA chest PE protocol HISTORY:shortness of breath, tachycardia . COMPARISON: None. TECHNIQUE: Following the noncontrasted licensed mass real estate appraiser, axial images of the thorax were obtained following infusion of 100 cc of Isovue 370. Post-processing on an independent workstation was performed to reconstruct MIP images for evaluation of the thoracic vasculature. FINDINGS: There is no pulmonary embolism, aortic dissection, thoracic aneurysm or pericardial fluid. Patchy airspace consolidation noted within the right upper, right middle and lower lobe. No pleural effusion or pneumothorax is noted. There is no axillary, mediastinal or hilar adenopathy. Limited evaluation of the upper abdomen demonstrates no gross abnormalities. Review of bone windows demonstrates no osteoblastic or lytic lesions. IMPRESSION: There is no pulmonary embolism, aortic dissection, pericardial fluid or thoracic aneurysm. Patchy airspace consolidation within the right lung suggestive of multilobar pneumonia. All CT scans at this facility are performed using low dose modulation techniques as appropriate to perform exam including the following: automated exposure control; use of iterative reconstruction technique; adjustment of the mA and/or kV according to patient size (this includes techniques or standardized protocols for targeted exams where dose is matched to indication/reason for exam). Reviewed, dictated and finalized at location S. IMPRESSION: There is no pulmonary embolism, aortic dissection, pericardial fluid or thoraci c aneurysm. Patchy airspace consolidation within the right lung suggestive of multilobar pn eumonia. All CT scans at this facility are performed using low dose modulation techniqu es as appropriate to perform exam including the following: automated exposure c ontrol; use of iterative reconstruction technique; adjustment of the mA and/or kV according to patient size (this includes techniques or standardized protocol s for targeted exams where dose is matched to indication/reason for exam).
--- NOTE | 2025-08-26 17:16 | ECG_ITS ---
Test Date: 2025-08-26 18:12:04 Measurements Intervals [place] Rate: 112 P: 74 KS: 146 QRS: 62 QRSD: 90 T: 47 QT: 307 QTc: 420 Interpretive Statements SINUS TACHYCARDIA LEFT ATRIAL ENLARGEMENT INCOMPLETE RIGHT BUNDLE BRANCH BLOCK BASELINE ARTIFACT- I, II, III, AVR, AVL, AVF, V1-V3 ABNORMAL ECG No previous ECG available for comparison Electronically Signed On 08-26-2025 20:12:15 CDT by Tone Perkins D.O.
--- NOTE | 2025-08-26 17:18 | ED.SOB ---
HPI - SOB/Dyspnea General Chief Complaint: Shortness of Breath/Dyspnea Stated Complaint: worsening pneumonia Time Seen by Provider: 08/26/25 16:51 History of Present Illness HPI Narrative: Patient is a 25-year-old female who presents to the ER with worsening shortness of breath. She reports she was here on Monday, 3 days ago and diagnosed with pneumonia. Patient reports she was placed on Augmentin and told to return with worsening symptoms. She reports she has not had a fever since Monday but continues to have full body aches, coughing to the point of vomiting, pain with breathing, congestion and headache. Patient endorses a history of pneumonia as a child, but has had pneumonia for years. She also endorses a history of an IUD but denies any other relevant medical history. Patient denies any chest pain, acute back pain, or urinary symptoms. Related Data Home Medications ?Medication ?Instructions ?Recorded ?Confirmed ?Last Taken ?Type vits no.126-ferrous fum 1 tablet PO DAILY 04/30/24 04/30/24 1 Day Ago History 28 mg iron-folic acid 800 mcg ~04/29/24 tablet (Classic ) Allergies Allergy/AdvReac Type Severity Reaction Status Date / Time No Known Allergies Allergy Mild Verified 08/26/25 16:47 Review of Systems Review of Systems: All systems reviewed & are unremarkable except as noted in HPI and below PMFSH Family History Family History Other No pertinent family history Social History Social History Smoking status: Never smoker Second hand tobacco smoke exposure: No Substance use: never Do You Feel Safe in your Home?: Yes Lack of Transportation: No Lack of Food: Never True Current Housing: I Have Housing Concerned About Future Housing: No Difficulty Paying Gas/Electric Bills: No Difficulty Paying for Meds: No Currently Unemployed: YES Education: High School Diploma/GED Difficulty w/ Childcare or Family Care: No Spiritual care concerns: No Exam Narrative: GENERAL: Ill appearing, well-nourished, non-toxic, in mild respiratory distress. HEAD: Normocephalic, atraumatic. NECK: Supple. No adenopathy, no masses. RESPIRATORY: Airway patent, respirations mildly labored. Crackles to right upper lobe. CARDIOVASCULAR: Regular rate and rhythm without murmurs, rubs, or gallops. Peripheral pulses 2+ and equal bilaterally. ABDOMINAL: Soft, nontender, nondistended, no hepatosplenomegaly. Normoactive BS. MUSCULOSKELETAL: Moves all extremities. Strength/ROM intact without gross deformities. SKIN: Warm, dry, normal color. No rashes. NEURO: A&O X3. Speech clear. Cranial nerves II-XII intact. No ataxic movements. PSYCHIATRIC: Appropriate mood and affect. Normal interaction. Course Vital Signs Vital signs: Vital Signs Temperature 37.3 C 08/26/25 16:42 Pulse Rate 106 H 08/26/25 16:42 Respiratory Rate 20 08/26/25 16:42 Blood Pressure 130/79 08/26/25 16:42 Pulse Oximetry 98 08/26/25 16:42 Oxygen Delivery Room Air 08/26/25 16:42 Temperature 37.3 C 08/26/25 16:42 Pulse Rate 107 H 08/26/25 20:05 Respiratory Rate 23 H 08/26/25 20:05 Blood Pressure 107/66 08/26/25 20:05 Pulse Oximetry 97 08/26/25 20:05 Oxygen Delivery Room Air 08/26/25 18:18 MDM - SOB/Dyspnea MDM Narrative Medical decision making narrative: Patient is a 25-year-old female who presents to the ER with worsening shortness of breath. She reports she was here on Monday, 3 days ago and diagnosed with pneumonia. Patient reports she was placed on Augmentin and told to return with worsening symptoms. She reports she has not had a fever since Monday but continues to have full body aches, coughing to the point of vomiting, pain with breathing, congestion and headache. Patient endorses a history of pneumonia as a child, but has had pneumonia for years. She also endorses a history of an IUD but denies any other relevant medical history. Patient denies any chest pain, acute back pain, or urinary symptoms. Labs Ordered: CBC, CMP, PTT, INR, magnesium, lactic acid, D-dimer Imaging Ordered: CT chest, chest x-ray Medications Ordered: DuoNeb, Solu-Medrol IV, 1 L normal saline IV bolus x2, Toradol 15 mg, ceftriaxone 1 g IV, azithromycin IV, Zofran IV Results: Pt's CT scan indicates There is no pulmonary embolism, aortic dissection, thoracic aneurysm or pericardial fluid. Patchy airspace consolidation noted within the right upper, right middle and lower lobe. No pleural effusion or pneumothorax is noted. There is no axillary, mediastinal or hilar adenopathy. Limited evaluation of the upper abdomen demonstrates no gross abnormalities. Review of bone windows demonstrates no osteoblastic or lytic lesions. Diagnosis: Community-acquired pneumonia Patient Education/Shared MDM: Results of lab work and imaging shared with patient. She endorses improvement of symptoms following medication administration. Extensive discussion between ROUTE DELIVERY DRIVER and patient regarding admission versus discharge home. It was decided patient would trial going home again but a 2nd antibiotic would be added to her regimen. Patient strongly advised to maintain hydration status upon discharge and follow-up with her PCP as soon as possible. She will be discharged home with a prescription for doxycycline, inhaler, Zofran, and cough medicine. Patient was advised to take Tylenol and ibuprofen as needed for pain control. Strict return precautions provided. Patient verbalized understanding and is in agreement with plan. Vital signs stable at time of discharge. All questions answered. Differential Diagnosis Differential diagnosis: Likely acute exacerbation of chronic obstructive airways disease, congestive heart failure, community acquired pneumonia, asthma with exacerbation and pulmonary embolism Lab Data Attestation: I reviewed the patient's lab results. 08/26/25 17:32 08/26/25 17:32 Labs: Lab Results 08/26/25 08/26/25 Range/Units 17:32 18:35 WBC 13.8 H (4.5-10.0) K/mm3 RBC 5.19 (4.2-5.4) M/mm3 Hgb 13.5 D (12.0-15.0) g/dL Hct 41.3 (37.0-47.0) % MCV 79.6 L (80-100) fl MCH 26.0 (26-34) pg MCHC 32.7 (32-36) g/dl RDW 13.9 (11.5-14.5) % Plt Count 274 (150-375) k/mm3 MPV 9.2 (7.4-10.4) fl Immature Gran % (Auto) 0.2 (0-0.5) % Neut % (Auto) 76.4 H (45.5-73.1) % Lymph % (Auto) 12.3 L (18.3-44.2) % [place] % (Auto) 8.8 H (2.6-8.5) % Eos % (Auto) 1.8 (0-4.4) % Baso % (Auto) 0.5 (0.2-1.2) % Lymph # (Auto) 1.70 (0.9-3.2) K/mm3 [place] # (Auto) 1.2 H (0.1-0.6) K/mm3 Eos # (Auto) 0.3 (0-0.3) K/mm3 Baso # (Auto) 0.1 (0.0-0.1) K/mm3 Abs Immat Gran (auto) 0.03 (0.00-0.031) K/mm3 Absolute Neuts (auto) 10.6 H (1.3-6.7) K/mm3 Absolute Nucleated RBC 0.000 (0.0-0.012) K/mm3 Nucleated RBC % 0.0 (0.0-0.2) % PT 12.9 (11.1-14.7) Seconds INR 1.0 APTT 29.6 (22.3-36.8) Seconds D-Dimer 0.44 (<0.48) ug/mL Sodium 137 (137-145) mmol/L Potassium 4.5 (3.4-5.0) mmol/L Chloride 103 (98-107) mmol/L Carbon Dioxide 24 (22-30) mmol/L Anion Gap 10 (4-12) mmol/L BUN 14 (7-17) mg/dL Creatinine 0.92 (0.7-1.0) mg/dL Estim Creat Clear Calc 81 ml/min Estimated GFR > 60 (59 - ) Glucose 94 (65-110) mg/dL Lactic Acid 0.9 (0.7-2.0) mmol/L Calcium 9.5 (8.4-10.2) mg/dL Magnesium 1.9 (1.6-2.3) mg/dL Total Bilirubin 0.5 (0.2-1.3) mg/dL AST 33 (14-36) U/L ALT 20 (6-35) U/L Alkaline Phosphatase 66 (38-126) U/L Total Protein 8.0 (6.3-8.2) g/dL Albumin 4.6 (3.5-5.1) g/dL POC Urine HCG, Qual Negative (Negative) Imaging Data Attestation: I personally reviewed and interpreted this imaging study as follows: Radiologist's impression: Impressions Chest X-Ray 08/26/25 18:58 IMPRESSION: Patchy airspace opacity in the right upper and right lower lobe suggestive of pneumonia. Chest CTA 08/26/25 20:26 IMPRESSION: There is no pulmonary embolism, aortic dissection, pericardial fluid or thoracic aneurysm. Patchy airspace consolidation within the right lung suggestive of multilobar pneumonia. All CT scans at this facility are performed using low dose modulation techniques as appropriate to perform exam including the following: automated exposure control; use of iterative reconstruction technique; adjustment of the mA and/or kV according to patient size (this includes techniques or standardized protocols for targeted exams where dose is matched to indication/reason for exam). Discharge Plan Discharge Clinical Impression: Community acquired pneumonia, Nausea & vomiting Patient Disposition: Home Condition: Stable Instructions: Antibiotic Form, Community Acquired Pneumonia (ED) Additional Instructions: Please return to the ER with any worsening symptoms. Follow-up with primary care provider in the next 2-3 days to ensure your healing. Take all medications as prescribed, including regularly scheduled medications. Please complete your full dose of antibiotics. You may take Tylenol and ibuprofen together for pain control. Remember to drink lots of water. Patient Language: Indonesian Prescriptions: New doxycycline monohydrate 100 mg capsule 100 mg PO BID Qty: 14 0RF albuterol sulfate [Ventolin HFA] 90 mcg/actuation HFA aerosol inhaler 2 puff inhalation QID PRN (Reason: shortness of breath or wheezing) Qty: 8.5 0RF prednisolone 5 mg (21 tabs) tablets,dose pack See Rx Instructions .ROUTE .COMPLEX Qty: 1 0RF Rx Instructions: orally per package directions promethazine-codeine 6.25-10 mg/5 mL syrup 5 ml PO Q4-6H PRN (Reason: cough) Qty: 473 0RF ondansetron 4 mg tablet,disintegrating 4 mg PO Q6H PRN (Reason: nausea and vomiting) Qty: 30 0RF No Action amoxicillin-pot clavulanate 875-125 mg tablet 1 tablet PO Q12H Qty: 14 0RF Classic 28 mg iron- 800 mcg Tablet 1 tablet PO DAILY Follow-up/Referrals: Abrahan Wen MD [Physician, Family Practice] Referral Note: primary care provider UNKNOWN,DOCTOR [Primary Care Provider] Stand Alone Forms: Work/School Release IP Time of Disposition: 23:12
[2025-08-26 17:39] LABS: Hematocrit 41.3 % (37.0-47.0); Hemoglobin 13.5 g/dL (12.0-15.0); Immature Granulocyte Percent A 0.2 % (0-0.5); Lymphocytes Absolute Auto 1.70 K/mm3 (0.9-3.2); Mean Corpuscular HGB Conc 32.7 g/dl (32-36); Mean Corpuscular Hemoglobin 26.0 pg (26-34); Mean Corpuscular Volume 79.6 fl (80-100); Nucleated Red Blood Cells Absolute Auto 0.000 K/mm3 (0.0-0.012); Nucleated Red Blood Cells Perc 0.0 % (0.0-0.2); Platelet Count Result 274 k/mm3 (150-375); Red Blood Count 5.19 M/mm3 (4.2-5.4); White Blood Count 13.8 K/mm3 (4.5-10.0)
[2025-08-26] MEDS: KETOROLAC 15 MG/ML VIAL (*BKC) IV PUSH (17:41)
[2025-08-26] MEDS: SODIUM CHLORIDE 0.9% IV 1,000 ML 999 ML IV CONT ×2 (17:42→20:25)
[2025-08-26] MEDS: IPRATROPIUM 0.5 MG/ALBUTEROL SULFATE 2.5 MG (BASE) AMPUL.NEB 3 ML INHALATION ×3 (17:43→17:44)
[2025-08-26 17:50] LABS: INR 1.0; Prothrombin Time 12.9 Seconds (11.1-14.7)
[2025-08-26 17:51] LABS: Partial Thromboplastin Time 29.6 Seconds (22.3-36.8)
[2025-08-26 18:02] LABS: Alanine Aminotransferase 20 U/L (6-35); Albumin Level 4.6 g/dL (3.5-5.1); Alkaline Phosphatase 66 U/L (38-126); Anion Gap 10 mmol/L (4-12); Aspartate Amino Transferase 33 U/L (14-36); Bilirubin,Total 0.5 mg/dL (0.2-1.3); Blood Urea Nitrogen 14 mg/dL (7-17); Calcium 9.5 mg/dL (8.4-10.2); Carbon Dioxide 24 mmol/L (22-30); Chloride 103 mmol/L (98-107); Estimated CRCL calculation 81 ml/min; Estimated Glomerular Filt Rate > 60; Glucose 94 mg/dL (65-110); Magnesium 1.9 mg/dL (1.6-2.3); Potassium 4.5 mmol/L (3.4-5.0); Sodium 137 mmol/L (137-145); Total Protein 8.0 g/dL (6.3-8.2)
[2025-08-26] MEDS: cefTRIAXone 1 GM in SODIUM CHLORIDE 0.9% IV 50 ML 100 ML IVPB (18:34)
[2025-08-26 18:36] LABS: BEDSIDEPREGUCG Negative (Negative)
[2025-08-26] MEDS: AZITHROMYCIN IV 500 MG in SODIUM CHLORIDE 0.9% IV 250 ML IVPB (18:37)
--- OUTSIDE RECORDS SUMMARY | 2025-08-26 19:48 | XMS_ITS | Encounter Summary ---
Author Organization [facility] Address [address] [place] [address] Care Team Providers Care Erecting Engineer Name Role Phone Barbara Cohen MD Primary Care Provider [phone] Encounter Details Date Type Department Care Team (Late st Contact Info) Description 01/17/2003 Outpatient Historical [facility] 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
--- OUTSIDE RECORDS SUMMARY | 2025-08-26 19:48 | XMS_ITS | Encounter Summary ---
Author Organization [facility] Address [address] [place] [address] Care Team Providers Care Line Camera Operator Name Role Phone Barbara Cohen MD Primary Care Provider [phone] Encounter Details Date Type Department Care Team (Late st Contact Info) Description 11/25/2004 Outpatient Historical [facility] 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
--- OUTSIDE RECORDS SUMMARY | 2025-08-26 19:48 | XMS_ITS | Encounter Summary ---
Author Organization [facility] Address [address] [place] [address] Care Team Providers Care Blast Furnace Auxiliaries Supervisor Name Role Phone Barbara Cohen MD Primary Care Provider [phone] Encounter Details Date Type Department Care Team (Late st Contact Info) Description 2000 Outpatient Historical [facility] 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
--- OUTSIDE RECORDS SUMMARY | 2025-08-26 19:48 | XMS_ITS | Encounter Summary ---
Author Organization [facility] Address [address] [place] [address] Care Team Providers Care Machine Former Name Role Phone Barbara Cohen MD Primary Care Provider [phone] Encounter Details Date Type Department Care Team (Latest Contact Info) Description 2000 Outpatient Historical [facility] [place] Finch, Bennett Montes De Oca MD 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
--- OUTSIDE RECORDS SUMMARY | 2025-08-26 19:48 | XMS_ITS | Encounter Summary ---
Author Organization [facility] Address [address] [place] [address] Care Team Providers Care Assembler Sandal Parts Name Role Phone Barbara Cohen MD Primary Care Provider [phone] Encounter Details Date Type Department Care Team (Late st Contact Info) Description 2000 Outpatient Historical [facility] [address] [id number] Bennett Finch MD 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
--- OUTSIDE RECORDS SUMMARY | 2025-08-26 19:48 | XMS_ITS | Encounter Summary ---
Author Organization [facility] Address [address] [place] [address] Care Team Providers Care Commercial Diver Name Role Phone Barbara Cohen MD Primary Care Provider [phone] Encounter Details Date Type Department Care Team (Late st Contact Info) Description 01/19/2001 Outpatient [facility] 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
--- OUTSIDE RECORDS SUMMARY | 2025-08-26 19:48 | XMS_ITS | Encounter Summary ---
Author Organization [facility] Address [address] [place] [address] Care Team Providers Care Architectural Project Manager Name Role Phone Barbara Cohen MD Primary Care Provider [phone] Encounter Details Date Type Department Care Team (Late st Contact Info) Description 01/25/2001 Outpatient Historical [facility] 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
--- OUTSIDE RECORDS SUMMARY | 2025-08-26 19:48 | XMS_ITS | Encounter Summary ---
Author Organization [facility] Address [address] [place] [address] Care Team Providers Care Brick Molder Hand Name Role Phone Barbara Cohen MD Primary Care Provider [phone] Encounter Details Date Type Department Care Team (Late st Contact Info) Description 2000 Outpatient Historical [facility] Pediatrics 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
--- OUTSIDE RECORDS SUMMARY | 2025-08-26 19:48 | XMS_ITS | Encounter Summary ---
Author Organization [facility] Address [address] [place] [address] Care Team Providers Care Photographic Supervisor Name Role Phone Barbara Cohen MD Primary Care Provider [phone] Encounter Details Date Type Department Care Team (Late st Contact Info) Description 2000 Outpatient Historical [facility] Pediatrics [address] [address] [place] [address] [place] [address] Social History Tobacco Use Types Packs/Day Years Used Date Smoking Tobacco: Never Assessed Comments Unknown Sex and Gender Information Value Date Recorded Sex Assigned at Not on file Legal Sex Female 3:03 AM BEATER OUT Gender Identity Not on file Sexual Orientation Not on file documented as of this encounter Plan of Treatment Not on file documented as of this encounter Visit Diagnoses Not on filedocumented in this encounter Care Teams Photographic Supervisor Relationship Specialty Start Date End Date Barbara Cohen MD PCP - General 00 documented as of this encounter
--- OUTSIDE RECORDS SUMMARY | 2025-08-26 19:48 | XMS_ITS | Encounter Summary ---
Author Organization [facility] Address [address] [place] [address] Care Team Providers Care Family Law Paralegal Name Role Phone Barbara Cohen MD Primary Care Provider [phone] Encounter Details Date Type Department Care Team (Late st Contact Info) Description 07/17/2003 Outpatient Historical [facility] Pediatrics [address] [facility] [address] [address] [place] [address] [place] [address] Social History Tobacco Use Types Packs/Day Years Used Date Smoking Tobacco: Never Assessed Comments Unknown Sex and Gender Information Value Date Recorded Sex Assigned at Not on file Legal Sex Female 3:03 AM SAFETY AND SECURITY OFFICER Gender Identity Not on file Sexual Orientation Not on file documented as of this encounter Plan of Treatment Not on file documented as of this encounter Visit Diagnoses Not on filedocumented in this encounter Care Teams Family Law Paralegal Relationship Specialty Start Date End Date Barbara Cohen MD PCP - General 00 documented as of this encounter
--- OUTSIDE RECORDS SUMMARY | 2025-08-26 19:48 | XMS_ITS | Encounter Summary ---
Author Organization [facility] Address [address] [place] [address] Care Team Providers Care Utility Worker [place] Name Role Phone Barbara Cohen MD Primary Care Provider [phone] Encounter Details Date Type Department Care Team (Late st Contact Info) Description 2000 Outpatient [facility] Pediatrics [address] [facility] [address] [facility] [address] [address] Alphonse Marcos MD NO ADDRESS ON FILE Social History Tobacco Use Types Packs/Day Years Used Date Smoking Tobacco: Never Assessed Comments Unknown Sex and Gender Information Value Date Recorded Sex Assigned at Not on file Legal Sex Female 3:03 AM MORTGAGE ACCOUNTING CLERK Gender Identity Not on file Sexual Orientation Not on file documented as of this encounter Plan of Treatment Not on file documented as of this encounter Visit Diagnoses Not on filedocumented in this encounter Care Teams Utility Worker [place] Relationship Specialty Start Date End Date Barbara Cohne MD PCP - General 00 documented as of this encounter
--- OUTSIDE RECORDS SUMMARY | 2025-08-26 19:48 | XMS_ITS | Encounter Summary ---
Author Organization [facility] Address [address] [place] [address] Care Team Providers Care Newspaper Carrier Name Role Phone Barbara Cohen MD Primary Care Provider [phone] Encounter Details Date Type Department Care Team (Late st Contact Info) Description 2000 Outpatient Historical [facility] Pediatrics [address] [address] [place] [address] [place] [address] Social History Tobacco Use Types Packs/Day Years Used Date Smoking Tobacco: Never Assessed Comments Unknown Sex and Gender Information Value Date Recorded Sex Assigned at Not on file Legal Sex Female 3:03 AM LABOR AND DELIVERY NURSE Gender Identity Not on file Sexual Orientation Not on file documented as of this encounter Plan of Treatment Not on file documented as of this encounter Visit Diagnoses Not on filedocumented in this encounter Care Teams Newspaper Carrier Relationship Specialty Start Date End Date Barbara Cohen MD PCP - General 00 documented as of this encounter
--- OUTSIDE RECORDS SUMMARY | 2025-08-26 19:48 | XMS_ITS | Encounter Summary ---
Author Organization [facility] Address [address] [place] [address] Care Team Providers Care Economic Analysis Director Name Role Phone Barbara Cohen MD Primary Care Provider [phone] Encounter Details Date Type Department Care Team (Late st Contact Info) Description 02/12/2004 Outpatient Historical [facility] Pediatrics [address] [address] [place] [address] [place] [address] Social History Tobacco Use Types Packs/Day Years Used Date Smoking Tobacco: Never Assessed Comments Unknown Sex and Gender Information Value Date Recorded Sex Assigned at Not on file Legal Sex Female 3:03 AM UNIFORM DESIGNER Gender Identity Not on file Sexual Orientation Not on file documented as of this encounter Plan of Treatment Not on file documented as of this encounter Visit Diagnoses Not on filedocumented in this encounter Care Teams Economic Analysis Director Relationship Specialty Start Date End Date Barbara Cohen MD PCP - General 00 documented as of this encounter
--- OUTSIDE RECORDS SUMMARY | 2025-08-26 19:48 | XMS_ITS | Encounter Summary ---
Author Organization [facility] Address [address] [place] [address] Care Team Providers Care Contact Center Specialist Name Role Phone Barbara Cohen MD Primary Care Provider [phone] Encounter Details Date Type Department Care Team (Late st Contact Info) Description [address] [facility] Pediatrics [address] [address] [place] [address] [place] [address] Social History Tobacco Use Types Packs/Day Years Used Date Smoking Tobacco: Never Assessed Comments Unknown Sex and Gender Information Value Date Recorded Sex Assigned at Not on file Legal Sex Female 3:03 AM ASSEMBLY LINE INSPECTOR Gender Identity Not on file Sexual Orientation Not on file documented as of this encounter Plan of Treatment Not on file documented as of this encounter Visit Diagnoses Not on filedocumented in this encounter Care Teams Contact Center Specialist Relationship Specialty Start Date End Date Barbara Cohen MD PCP - General 00 documented as of this encounter
--- OUTSIDE RECORDS SUMMARY | 2025-08-26 19:48 | XMS_ITS | Encounter Summary ---
Author Organization [facility] Address [address] [place] [address] Care Team Providers Care Commander Police Reserves Name Role Phone Barbara Cohen MD Primary Care Provider [phone] Encounter Details Date Type Department Care Team (Late st Contact Info) Description 01/08/2003 Outpatient Historical [facility] Pediatrics [address] [address] [place] [address] [place] [address] Social History Tobacco Use Types Packs/Day Years Used Date Smoking Tobacco: Never Assessed Comments Unknown Sex and Gender Information Value Date Recorded Sex Assigned at Not on file Legal Sex Female 3:03 AM CALENDERING SUPERVISOR Gender Identity Not on file Sexual Orientation Not on file documented as of this encounter Plan of Treatment Not on file documented as of this encounter Visit Diagnoses Not on filedocumented in this encounter Care Teams Commander Police Reserves Relationship Specialty Start Date End Date Barbara Cohen MD PCP - General 00 documented as of this encounter
--- OUTSIDE RECORDS SUMMARY | 2025-08-26 19:48 | XMS_ITS | Encounter Summary ---
Author Organization [facility] Address [address] [place] [address] Care Team Providers Care Residency Director Name Role Phone Barbara Cohen MD Primary Care Provider [phone] Encounter Details Date Type Department Care Team (Late st Contact Info) Description 2000 Outpatient Historical [facility] Pediatrics [address] [address] [place] [address] [place] [address] Social History Tobacco Use Types Packs/Day Years Used Date Smoking Tobacco: Never Assessed Comments Unknown Sex and Gender Information Value Date Recorded Sex Assigned at Not on file Legal Sex Female 3:03 AM ESCROW OFFICER Gender Identity Not on file Sexual Orientation Not on file documented as of this encounter Plan of Treatment Not on file documented as of this encounter Visit Diagnoses Not on filedocumented in this encounter Care Teams Residency Director Relationship Specialty Start Date End Date Barbara Cohen MD PCP - General 00 documented as of this encounter
--- OUTSIDE RECORDS SUMMARY | 2025-08-26 19:48 | XMS_ITS | Encounter Summary ---
Author Organization [facility] Address [address] [place] [address] Care Team Providers Care Independent Beauty Consultant Name Role Phone Barbara Cohen MD Primary Care Provider [phone] Encounter Details Date Type Department Care Team (Late st Contact Info) Description 09/05/2002 Outpatient [facility] Pediatrics [address] [address] [place] [address] [place] [address] Social History Tobacco Use Types Packs/Day Years Used Date Smoking Tobacco: Never Assessed Comments Unknown Sex and Gender Information Value Date Recorded Sex Assigned at Not on file Legal Sex Female 3:03 AM STAMPING MACHINE OPERATOR Gender Identity Not on file Sexual Orientation Not on file documented as of this encounter Plan of Treatment Not on file documented as of this encounter Visit Diagnoses Not on filedocumented in this encounter Care Teams Independent Beauty Consultant Relationship Specialty Start Date End Date Barbara Cohen MD PCP - General 00 documented as of this encounter
--- OUTSIDE RECORDS SUMMARY | 2025-08-26 19:48 | XMS_ITS | Encounter Summary ---
Author Organization [facility] Address [address] [place] [address] Care Team Providers Care Speech And Language Assistant Name Role Phone Barbara Cohen MD Primary Care Provider [phone] Encounter Details Date Type Department Care Team (Late st Contact Info) Description 2000 Outpatient Historical [facility] Pediatrics [address] [address] [place] [address] [place] [address] Social History Tobacco Use Types Packs/Day Years Used Date Smoking Tobacco: Never Assessed Comments Unknown Sex and Gender Information Value Date Recorded Sex Assigned at Not on file Legal Sex Female 3:03 AM WASH WORKER Gender Identity Not on file Sexual Orientation Not on file documented as of this encounter Plan of Treatment Not on file documented as of this encounter Visit Diagnoses Not on filedocumented in this encounter Care Teams Speech And Language Assistant Relationship Specialty Start Date End Date Barbara Cohen MD PCP - General 00 documented as of this encounter
--- OUTSIDE RECORDS SUMMARY | 2025-08-26 19:48 | XMS_ITS | Encounter Summary ---
Author Organization [facility] Address [address] [place] [address] Care Team Providers Care Automatic Log Cut Off Sawyer Name Role Phone Barbara Cohen MD Primary Care Provider [phone] Encounter Details Date Type Department Care Team (Late st Contact Info) Description 2000 Outpatient Historical [facility] Pediatrics [address] [facility] [address] [address] [place] [address] [place] [address] Social History Tobacco Use Types Packs/Day Years Used Date Smoking Tobacco: Never Assessed Comments Unknown Sex and Gender Information Value Date Recorded Sex Assigned at Not on file Legal Sex Female 3:03 AM SUPERVISOR MICROBIOLOGY TECHNOLOGISTS Gender Identity Not on file Sexual Orientation Not on file documented as of this encounter Plan of Treatment Not on file documented as of this encounter Visit Diagnoses Not on filedocumented in this encounter Care Teams Automatic Log Cut Off Sawyer Relationship Specialty Start Date End Date Barbara Cohen MD PCP - General 00 documented as of this encounter
--- OUTSIDE RECORDS SUMMARY | 2025-08-26 19:48 | XMS_ITS | Encounter Summary ---
Author Organization [facility] Address [address] [place] [address] Care Team Providers Care Machine Operator General Name Role Phone Barbara Cohen MD Primary Care Provider [phone] Encounter Details Date Type Department Care Team (Late st Contact Info) Description 03/21/2002 Outpatient Historical [facility] Pediatrics [address] [address] [place] [address] [place] [address] Social History Tobacco Use Types Packs/Day Years Used Date Smoking Tobacco: Never Assessed Comments Unknown Sex and Gender Information Value Date Recorded Sex Assigned at Not on file Legal Sex Female 3:03 AM MEDICAL CLAIMS ANALYST Gender Identity Not on file Sexual Orientation Not on file documented as of this encounter Plan of Treatment Not on file documented as of this encounter Visit Diagnoses Not on filedocumented in this encounter Care Teams Machine Operator General Relationship Specialty Start Date End Date Barbara Cohen MD PCP - General 00 documented as of this encounter
--- OUTSIDE RECORDS SUMMARY | 2025-08-26 19:48 | XMS_ITS | Encounter Summary ---
Author Organization [facility] Address [address] [place] [address] Care Team Providers Care Consolidator Name Role Phone Barbara Cohen MD Primary Care Provider [phone] Encounter Details Date Type Department Care Team (Late st Contact Info) Description 11/02/2004 Outpatient [facility] Pediatrics [address] [address] [place] [address] [place] [address] Social History Tobacco Use Types Packs/Day Years Used Date Smoking Tobacco: Never Assessed Comments Unknown Sex and Gender Information Value Date Recorded Sex Assigned at Not on file Legal Sex Female 3:03 AM MANGLE PRESS CATCHER Gender Identity Not on file Sexual Orientation Not on file documented as of this encounter Plan of Treatment Not on file documented as of this encounter Visit Diagnoses Not on filedocumented in this encounter Care Teams Consolidator Relationship Specialty Start Date End Date Barbara Cohen MD PCP - General 00 documented as of this encounter
--- OUTSIDE RECORDS SUMMARY | 2025-08-26 19:48 | XMS_ITS | Encounter Summary ---
Author Organization [employer] [facility] Address [address] [place] [address] Care Team Providers Care Cellar Packer Name Role Phone Barbara Cohen MD Primary Care Provider [phone] Encounter Details Date Type Department Care Team (Late st Contact Info) Description 2000 Outpatient Historical [facility], Carmelo Capone MD [address] [place] [address] [address] [place] [address] Esophageal reflux (Primary Dx) Social History Tobacco Use Types Packs/Day Years Used Date Smoking Tobacco: Never Assessed Comments Unknown Sex and Gender Information Value Date Recorded Sex Assigned at Not on file Legal Sex Female 3:03 AM ADMINISTRATIVE HEARING OFFICER Gender Identity Not on file Sexual Orientation Not on file documented as of this encounter Plan of Treatment Not on file documented as of this encounter Visit Diagnoses Diagnosis Esophageal reflux- Primary documented in this encounter Care Teams Cellar Packer Relationship Specialty Start Date End Date Barbara Cohen MD PCP - General 00 documented as of this encounter
--- OUTSIDE RECORDS SUMMARY | 2025-08-26 19:48 | XMS_ITS | Encounter Summary ---
Author Organization [facility] Address [address] [place] [address] Care Team Providers Care Mdm Sr Name Role Phone Barbara Cohen MD Primary Care Provider [phone] Encounter Details Date Type Department Care Team (Late st Contact Info) Description 08/04/2004 Outpatient Historical [facility] Pediatrics [address] [address] [place] [address] [place] [address] Social History Tobacco Use Types Packs/Day Years Used Date Smoking Tobacco: Never Assessed Comments Unknown Sex and Gender Information Value Date Recorded Sex Assigned at Not on file Legal Sex Female 3:03 AM YIELD IMPROVEMENT ENGINEER Gender Identity Not on file Sexual Orientation Not on file documented as of this encounter Plan of Treatment Not on file documented as of this encounter Visit Diagnoses Not on filedocumented in this encounter Care Teams Mdm Sr Relationship Specialty Start Date End Date Barbara Cohen MD PCP - General 00 documented as of this encounter
--- OUTSIDE RECORDS SUMMARY | 2025-08-26 19:48 | XMS_ITS | Encounter Summary ---
Author Organization [facility] Address [address] [place] [address] Care Team Providers Care Feather Boner Name Role Phone Barbara Cohen MD Primary Care Provider [phone] Encounter Details Date Type Department Care Team (Late st Contact Info) Description 09/02/2003 Outpatient [facility] [place] [facility] Pediatrics [address] [facility] [address] [facility] [address] [address] Alphonse Marcos MD NO ADDRESS ON FILE Social History Tobacco Use Types Packs/Day Years Used Date Smoking Tobacco: Never Assessed Comments Unknown Sex and Gender Information Value Date Recorded Sex Assigned at Not on file Legal Sex Female 3:03 AM LACE WINDER Gender Identity Not on file Sexual Orientation Not on file documented as of this encounter Plan of Treatment Not on file documented as of this encounter Visit Diagnoses Not on filedocumented in this encounter Care Teams Feather Boner Relationship Specialty Start Date End Date Barbara Cohen MD PCP - General 00 documented as of this encounter
--- OUTSIDE RECORDS SUMMARY | 2025-08-26 19:48 | XMS_ITS | Encounter Summary ---
Author Organization [facility] Address [address] [place] [address] Care Team Providers Care Mgmt Analyst Name Role Phone Barbara Cohen MD Primary Care Provider [phone] Encounter Details Date Type Department Care Team (Late st Contact Info) Description 06/30/2003 Outpatient Historical [facility] Pediatrics [address] [address] [place] [address] [place] [address] Social History Tobacco Use Types Packs/Day Years Used Date Smoking Tobacco: Never Assessed Comments Unknown Sex and Gender Information Value Date Recorded Sex Assigned at Not on file Legal Sex Female 3:03 AM WAD IMPREGNATOR Gender Identity Not on file Sexual Orientation Not on file documented as of this encounter Plan of Treatment Not on file documented as of this encounter Visit Diagnoses Not on filedocumented in this encounter Care Teams Mgmt Analyst Relationship Specialty Start Date End Date Barbara Cohen MD PCP - General 00 documented as of this encounter
--- OUTSIDE RECORDS SUMMARY | 2025-08-26 19:48 | XMS_ITS | Encounter Summary ---
Author Organization [facility] Address [address] [place] [address] Care Team Providers Care Marine Service Manager Name Role Phone Barbara Cohen MD Primary Care Provider [phone] Encounter Details Date Type Department Care Team (Late st Contact Info) Description 01/19/2001 Outpatient [facility] Pediatrics [address] [address] [place] [address] [place] [address] Social History Tobacco Use Types Packs/Day Years Used Date Smoking Tobacco: Never Assessed Comments Unknown Sex and Gender Information Value Date Recorded Sex Assigned at Not on file Legal Sex Female 3:03 AM CASE MAKER Gender Identity Not on file Sexual Orientation Not on file documented as of this encounter Plan of Treatment Not on file documented as of this encounter Visit Diagnoses Not on filedocumented in this encounter Care Teams Marine Service Manager Relationship Specialty Start Date End Date Barbara Cohen MD PCP - General 00 documented as of this encounter
--- OUTSIDE RECORDS SUMMARY | 2025-08-26 19:48 | XMS_ITS | Encounter Summary ---
Author Organization [facility] Address [address] [place] [address] Care Team Providers Care Sail Maker Name Role Phone Barbara Cohen MD Primary Care Provider [phone] Encounter Details Date Type Department Care Team (Late st Contact Info) Description 10/27/2003 Outpatient [facility] Pediatrics [address] [address] [place] [address] [place] [address] Social History Tobacco Use Types Packs/Day Years Used Date Smoking Tobacco: Never Assessed Comments Unknown Sex and Gender Information Value Date Recorded Sex Assigned at Not on file Legal Sex Female 3:03 AM NUTRITION HELPER Gender Identity Not on file Sexual Orientation Not on file documented as of this encounter Plan of Treatment Not on file documented as of this encounter Visit Diagnoses Not on filedocumented in this encounter Care Teams Sail Maker Relationship Specialty Start Date End Date Barbara Cohen MD PCP - General 00 documented as of this encounter
--- OUTSIDE RECORDS SUMMARY | 2025-08-26 19:48 | XMS_ITS | Encounter Summary ---
Author Organization [facility] Address [address] [place] [address] Care Team Providers Care Account Underwriter Name Role Phone Barbara Cohen MD Primary Care Provider [phone] Encounter Details Date Type Department Care Team (Late st Contact Info) Description 2000 Outpatient Historical [facility] Pediatrics [address] [address] [place] [address] [place] [address] Social History Tobacco Use Types Packs/Day Years Used Date Smoking Tobacco: Never Assessed Comments Unknown Sex and Gender Information Value Date Recorded Sex Assigned at Not on file Legal Sex Female 3:03 AM FLOORING SALESPERSON Gender Identity Not on file Sexual Orientation Not on file documented as of this encounter Plan of Treatment Not on file documented as of this encounter Visit Diagnoses Not on filedocumented in this encounter Care Teams Account Underwriter Relationship Specialty Start Date End Date Barbara Cohen MD PCP - General 00 documented as of this encounter
--- OUTSIDE RECORDS SUMMARY | 2025-08-26 19:48 | XMS_ITS | Clinical Summary ---
Author Organization [facility] Address [address] Attn: Epic Prelude ADT [place] [address] Care Team Providers Care Child Day Care Teacher Name Role Phone Barbara Cohen MD Primary Care Provider [phone] Social History Tobacco Use Types Packs/Day Years Used Date Smoking Tobacco: Never Assessed Comments Unknown Sex and Gender Information Value Date Recorded Sex Assigned at Not on file Legal Sex Female 3:03 AM AGRICULTURE SALES ACCOUNT MANAGER Gender Identity Not on file Sexual Orientation Not on file Plan of Treatment Health Maintenance Due Date Last Done Comments HPV VACCINES (1 - 3-dose series) 2015 DTAP/TDAP/TD VACCINES (1 - Tdap) 2019 HEPATITIS B VACCINES (1 of 3 - 19+ 3-dose series) 03/07 CERVICAL CANCER SCREENING 2021 HPV/Cotest (21-29) 2021 PAP SMEAR 2021 INFLUENZA VACCINE (#1) 2025 Care Teams Child Day Care Teacher Relationship Specialty Start Date End Date Barbara Cohen MD PCP - General 00
--- OUTSIDE RECORDS SUMMARY | 2025-08-26 19:48 | XMS_ITS | Encounter Summary ---
Author Organization [facility] Address [address] [place] [address] Care Team Providers Care Community Coordinator Name Role Phone Barbara Cohen MD Primary Care Provider [phone] Encounter Details Date Type Department Care Team (Late st Contact Info) Description 10/11/[address] [facility] Pediatrics [address] [address] [place] [address] [place] [address] Social History Tobacco Use Types Packs/Day Years Used Date Smoking Tobacco: Never Assessed Comments Unknown Sex and Gender Information Value Date Recorded Sex Assigned at Not on file Legal Sex Female 3:03 AM CONFLICTS ANALYST Gender Identity Not on file Sexual Orientation Not on file documented as of this encounter Plan of Treatment Not on file documented as of this encounter Visit Diagnoses Not on filedocumented in this encounter Care Teams Community Coordinator Relationship Specialty Start Date End Date Barbara Cohen MD PCP - General 00 documented as of this encounter
--- OUTSIDE RECORDS SUMMARY | 2025-08-26 19:48 | XMS_ITS | Encounter Summary ---
Author Organization [facility] Address [address] [place] [address] Care Team Providers Care Certified Novell Administrator Name Role Phone Barbara Cohen MD Primary Care Provider [phone] Encounter Details Date Type Department Care Team (Late st Contact Info) Description 05/30/2001 Outpatient Historical [facility] Pediatrics [address] [address] [place] [address] [place] [address] Social History Tobacco Use Types Packs/Day Years Used Date Smoking Tobacco: Never Assessed Comments Unknown Sex and Gender Information Value Date Recorded Sex Assigned at Not on file Legal Sex Female 3:03 AM BOX LINER Gender Identity Not on file Sexual Orientation Not on file documented as of this encounter Plan of Treatment Not on file documented as of this encounter Visit Diagnoses Not on filedocumented in this encounter Care Teams Certified Novell Administrator Relationship Specialty Start Date End Date Barbara Cohen MD PCP - General 00 documented as of this encounter
--- OUTSIDE RECORDS SUMMARY | 2025-08-26 19:48 | XMS_ITS | Encounter Summary ---
Author Organization [facility] Address [address] [place] [address] Care Team Providers Care Power Saw Mechanic Name Role Phone Barbara Cohen MD Primary Care Provider [phone] Encounter Details Date Type Department Care Team (Late st Contact Info) Description 12/31/2001 Outpatient Historical [facility] Pediatrics 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
--- OUTSIDE RECORDS SUMMARY | 2025-08-26 19:48 | XMS_ITS | Encounter Summary ---
Author Organization [facility] Address [address] [place] [address] Care Team Providers Care Fisher Spear Name Role Phone Barbara Cohen MD Primary Care Provider [phone] Encounter Details Date Type Department Care Team (Late st Contact Info) Description 2000 Outpatient Historical [facility] Pediatrics 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
--- OUTSIDE RECORDS SUMMARY | 2025-08-26 19:48 | XMS_ITS | Encounter Summary ---
Author Organization [facility] Address [address] [place] [address] Care Team Providers Care Moisture Conditioner Operator Name Role Phone Barbara Cohen MD Primary Care Provider [phone] Encounter Details Date Type Department Care Team (Late st Contact Info) Description 07/26/2002 Outpatient Historical [facility] Pediatrics 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
--- OUTSIDE RECORDS SUMMARY | 2025-08-26 19:48 | XMS_ITS | Encounter Summary ---
Author Organization [email or web address] Address [address] Attn: Epic Prelude ADT [place] [address] Care Team Providers Care Retail Pharmacy Technician Name Role Phone Barbara Cohen MD Primary Care Provider [phone] Encounter Details Date Type Department Care Team (Late st Contact Info) Description 2000 Inpatient [place] [address] [place] [address] Single liveborn, born in hospital, delivered without mention of delivery (Primary Dx) Social History Tobacco Use Types Packs/Day Years Used Date Smoking Tobacco: Never Assessed Comments Unknown Sex and Gender Information Value Date Recorded Sex Assigned at Not on file 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
--- OUTSIDE RECORDS SUMMARY | 2025-08-26 19:48 | XMS_ITS | Encounter Summary ---
Author Organization [facility] Address [address] [place] [address] Care Team Providers Care Mottler Machine Feeder Name Role Phone Barbara Cohen MD Primary Care Provider [phone] Encounter Details Date Type Department Care Team (Late st Contact Info) Description 2000 Outpatient Historical [facility] Pediatrics 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
--- OUTSIDE RECORDS SUMMARY | 2025-08-26 19:48 | XMS_ITS | Encounter Summary ---
Author Organization [facility] Address 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
--- OUTSIDE RECORDS SUMMARY | 2025-08-26 19:48 | XMS_ITS | Encounter Summary ---
Author Organization [facility] Address [address] [place] [address] Care Team Providers Care Flame Degreaser Name Role Phone Barbara Cohen MD Primary Care Provider [phone] Encounter Details Date Type Department Care Team (Late st Contact Info) Description 12/11/2002 Outpatient Historical [facility] Pediatrics 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
--- OUTSIDE RECORDS SUMMARY | 2025-08-26 19:53 | XMS_ITS | Clinical Summary ---
Author Organization [facility] Address [address] [place] [address] Care Team Providers Care Supervisor Receiving And Processing Name Role Phone Adama Dunne MD Primary Care Provider [phone] Allergies No known active allergies Medications pantoprazole EC (PROTONIX) 40 MG tabletIndication s:Gastroesophage al reflux disease without esophagitis Take 1 tablet (40 mg total) by mouth daily. 30 tablet 2 Active albuterol sulfate HFA (VENTOLIN HFA) 108 (90 Base) MCG/ACT inhaler Inhale 2 puffs into the lungs every 6 (six) hours as needed for Wheezing or Shortness of breath. 18 g 3 Active albuterol sulfate HFA 108 (90 Base) MCG/ACT inhaler Inhale 2 puffs into the lungs every 6 (six) hours as needed for Wheezing. 6.7 g 3 Active methylPREDNISolo grace CAMMIE, (MEDROL DOSEPAK) 4 MG tablet 6 TABLETS ON DAY ONE, 5 TABLETS DAY TWO, 4 TABLETS DAY THREE, 3 TABLETS DAY FOUR, 2 TABLETS DAY FIVE, AND 1 TABLET DAY SIX 1 each 3 Active Active Problems No known active problems Family History Relation Status Comments Father Alive Mother Alive Social History Tobacco Use Types Packs/Day Years Used Date Smoking Tobacco: Never Smokeless Tobacco: Never Alcohol Use Standard Drinks/Week Comments No 0 (1 standard drink = 0.6 oz pur e alcohol) Humiliation, Afraid, Rape, and Kick questionnair e Answer Date Recorded Within the last year, have y ou been afraid of your partner or ex-partner? Patient declined 12/29/2020 Within the last year, have y ou been humiliated or emotionally abused in other ways by your partner or ex-partner? Patient declined 12/29/2020 Within the last year, have y ou been kicked, hit, slapped, or otherwise physically hurt by your partner or ex-partner? Patient declined 12/29/2020 Within the last year, have y ou been raped or forced to have any kind of sexual activity by your partner or ex-partner? Patient declined 12/29/2020 Social Connection and Isolation Panel Answer Date Recorded In a typical week, how many times do you talk on the phone with family, friends, or neighbors? Patient declined 12/29/2020 How often do you get togethe r with friends or relatives? Patient declined 12/29/2020 How often do you attend orthodoxy or evangelical serv ices? Patient declined 12/29/2020 Do you belong to any clubs o r organizations such as orthodoxy groups, unions, fraternal or athletic groups, or school groups? Patient declined 12/29/2020 How often do you attend meet ings of the clubs or organizations you belong to? Patient declined 12/29/2020 Are you , , di vorced, , never , or living with a partner? Patient declined 12/29/2020 Overall Financial Resource Strain (CARDIA) Answe r Date Recorded How hard is it for you to pa y for the very basics like food, housing, medical care, and heating? Not hard at all 12/29/2020 [facility] - Occupational Stress Questionnaire Answer Date Recorded Do you feel stress - tense, restless, nervous, or anxious, or unable to sleep at night because your mind is troubled all the time - these days? Not at all 12/29/2020 Exercise Vital Sign Answer Date Recorde d On average, how many days pe r week do you engage in moderate to strenuous exercise (like a brisk walk)? 2 days 12/29/2020 On average, how many minutes do you engage in exercise at this level? 30 min 12/29/2020 Hunger Vital Sign Answer Date Recorded Within the past 12 months, y ou worried that your food would run out before you got the money to buy more. Never true 12/29/19 21 Within the past 12 months, t he food you bought just didn't last and you didn't have money to get more. Never true 12/29/2020 PRAPARE - Transportation Answer Date Re corded In the past 12 months, has l ack of transportation kept you from medical appointments or from getting medications? No 12/08 In the past 12 months, has l ack of transportation kept you from meetings, work, or from getting things needed for daily living? No 12/29/2020 Comments No Sex and Gender Information Value Date Recorded Sex Assigned at Not on file Legal Sex Female 4:46 PM CDT Gender Identity Not on file Sexual Orientation Not on file Last Filed Vital Signs Vital Sign Reading Time Taken Comments Blood Pressure 122/66 01/15/2023 5:55 PM CDT Pulse 88 01/15/2023 5:55 PM CDT Temperature 37.1 C (98.7 F) 01/15/2023 5:55 PM CDT Respiratory Rate 20 01/15/2023 5:55 PM CDT Oxygen Saturation 99% 01/15/2023 5:55 PM CDT Inhaled Oxygen Concentration - - Weight 73 kg (161 lb) 01/15/2023 5:55 PM CDT Height 162.6 cm (5' 4) 01/15/2023 5:55 PM CDT Body Mass Index 27.64 01/15/2023 5:55 PM CDT Plan of Treatment Health Maintenance Due Date Last Done Comments Cervical Cancer Screening Pa p Smear (Age 21 to 29) Every 3 Years 2000 Cervical Cancer Screening 2000 Annual Physical 2003 HPV Vaccines (1 - 3-dose series) 2015 Hepatitis C 2018 DTaP, Tdap and Td Vaccines ( 1 - Tdap) 2019 Hepatitis B Vaccines (1 of 3 - 19+ 3-dose series) 2019 COVID-19 Vaccine (2024-2 6 season) 2025 Influenza Adult (#1) 2025 Meningococcal Vaccine Completed 07/06/2017 Hepatitis A Vaccines Aged Out No long er eligible based on patient's age to complete this topic Meningococcal B Vaccine Aged Out No l onger eligible based on patient's age to complete this topic Pneumococcal Vaccine: Pediat rics (0 to 5 Years) and At-Risk Patients (6 to 49 Years) Aged Out No longer eligi ble based on patient's age to complete this topic RSV Immunizations Under 20 Months Aged Out No longer eligible based on patient's age to complete this topic Medical Devices Implanted Type Area Diet Counselor Device Identifier Shelf Expiration Date Model / Serial / Lot Screw Depuy 2.0 X 22mm - [id number] Implanted:Qty: 1 on 01/25/2018 by Karen Torre MD at [facility] Left: [employer] [id number] / / Insurance [place], [place] [id number] [place] [address] Advance Directives Documents on File Type Date Recorded 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
--- OUTSIDE RECORDS SUMMARY | 2025-08-26 19:53 | XMS_ITS | Encounter Summary ---
Author Organization [facility] Address [address] [place] [address] Care Team Providers Care Salvage Mechanic Name Role Phone Adama Dunne MD Primary Care Provider [phone] Encounter Details Date Type Department Care Team (Late st Contact Info) Description 12/24/2020 Prep for Procedure [facility] [address] [place] [id number] Cami Delgado MD [address] [place] [id number] Social History Tobacco Use Types Packs/Day Years Used Date Smoking Tobacco: Never Smokeless Tobacco: Never Alcohol Use Standard Drinks/Week Comments No 0 (1 standard drink = 0.6 oz pur e alcohol) Comments No Sex and Gender Information Value Date Recorded Sex Assigned at Not on file Legal Sex Female 4:46 PM CDT Gender Identity Not on file Sexual Orientation Not on file COVID-19 Exposure Response Date Recorded In the last month, have you been in contact with someone who was confirmed or suspected to have Coronavirus / COVID-19? No / Unsure 12/26/2020 10:10 AM [employer] UP WORK[employer] documented as of this encounter Plan of Treatment Not on file documented as of this encounter Results * MRSA SCREENING (12/26/2020 11:50 AM [employer]ION PI[employer] SET UP WORKER) SPEC DESCRIPTION NASAL 12/26/2020 10:11 AM [employer]ION PI[employer] SET UP WORKER [facility] SPECIAL REQUESTS NO SPECIAL REQUEST 12/26/2020 10:11 AM [employer]ION PI[employer] SET UP WORKER [facility] CULTURE RESULT NO METHICILLIN RESISTANT STAPHYLOCOCCUS AUREUS ISOLATED 12/27/2020 3:43 PM [employer]ION PI[employer]URE SET UP WORKER [facility] SPECIMEN FROM INTERNAL NOSE / Unknown 12/26/2020 11:50 AM MOTION PI[employer]URE SET UP WORKER 12/26/2020 12:25 PM MOTION PI[employer]URE SET UP WORKER us Cami Delgado MD MICROBIOLOGY - GENERAL ORDERABLE S Final Result [facility] [address] [place] [address], * PRE-SURGICAL/PRE-PROCEDURE CORONAVIRUS (COVID 19) (12/26/2020 10:45 AM [employer]ION PI[employer]URE SET UP WORKER) CORONAVIRUS SARS COV 2 PCR (RESP) NOT DETECTED NOT DETECTED 12/27/2020 10:51 AM MOTION PICTURE SET UP WORKER [facility] Comment: A Not Detected (negative) test result for this test means that SARS- CoV-2 RNA was not present in the specimen above the limit of detection. A negative result does not rule out the possibility of COVID-19 and should not be used as the sole basis for treatment or patient management decisions. If COVID-19 is still suspected, based on exposure history together with other clinical findings, re-testing should be considered in consultation with public health authorities. Laboratory test results should always be considered in the context of clinical observations and epidemiological data in making a final diagnosis and patient management decisions. Please review the Fact Sheets and FDA authorized labeling available for health care providers and patients using the following websites: https://www.[email or web address]/home/Covid-19/HCP/Quest[employer]/fact- sheet.html https://www.[email or web address]/home/Covid-19/Patients/ Quest[employer]/fact-sheet.html This test has been authorized by the FDA under an Emergency Use Authorization (EUA) for use by authorized laboratories. Due to the current public health emergency, [facility] is receiving a high volume of samples from a wide variety of swabs and media for COVID-19 testing. In order to serve patients during this public health crisis, samples from appropriate clinical sources are being tested. Negative test results derived from specimens received in non-commercially manufactured viral collection and transport media, or in media and sample collection kits not yet authorized by FDA for COVID-19 testing should be cautiously evaluated and the patient potentially subjected to extra precautions such as additional clinical monitoring, including collection of an additional specimen. Methodology: Nucleic Acid Amplification Test (NAAT) includes RT-PCR or TMA Additional information about COVID-19 can be found at the [facility] website: [email or web address]/Covid19. [facility] performed at [facility] [address] [place] [address] Director: SUDHAKAR AKBAR DO,MPH FIRST TEST YES 12/26/2020 10:11 AM [facility] EMPLOYED IN HEALTHCARE NO 12/26/2020 10:11 AM [facility] SYMPTOMATIC DEFINED BY CDC NO 12/26/2020 10:11 AM [facility] DATE OF SYMPTOM ONSET UNKNOWN 12/26/2020 10:56 AM [facility] HOSPITALIZATION STATUS NO 12/26/2020 10:11 AM [facility] PATIENT IN ICU NO 12/26/2020 10:11 AM [facility] NO 12/26/2020 10:11 AM [facility] NOT 12/26/2020 10:11 AM [facility] PATIENT'S RACE WHITE OR 12/26/2020 10:11 AM [facility] ETHNICITY NONHISPANIC 12/26/2020 10:11 AM [facility] SOURCE (QST) NASOPHARYNGEAL SWAB 12/26/2020 10:11 AM [facility] NASOPHARYNGEAL SWAB / Unknown 12/26/2020 10:45 AM [employer] SET UP WORKER us Cami Delgado MD MICROBIOLOGY - GENERAL ORDERABLE S Final Result [facility] [address] [place] [address], [place] [phone] [facility] [address] [place] [address], documented in this encounter Visit Diagnoses Diagnosis Pre-op testing- Primary Preoperative examination, unspecified documented in this encounter Additional Health Concerns Infection Onset Date Last Indicated Resolved Time COVID-19 Rule Out 12/26/2020 12/26/2020 12/27/2020 10:51 AM [employer] WORKER COVID-19 Rule Out 11/11/2022 11/11/2022 11/11/2022 1:54 AM [employer] SET UP WORKER COVID-19 Rule Out 01/15/2023 01/15/2023 01/15/2023 6:21 PM CDT documented as of this encounter Care Teams Salvage Mechanic Relationship Specialty Start Date End Date Adama Dunne MD [address] [place] [address] PCP - General FAMILY PRACTICE 01/25/18 documented as of this encounter
[2025-08-26] MEDS: ONDANSETRON INJ 4 MG/2 ML VIAL IV PUSH (20:24)
[2025-08-26] MEDS: PROMETHAZINE/CODEINE (*CRX) 5 ML SYRUP PO (23:33)
== END 2025-08-26 23:34 | disposition home or self-care (01) ==
PROVIDERS: Emergency Provider Registered Nurse
DX: J18.9 Pneumonia, unspecified organism (principal); R11.2 Nausea with vomiting, unspecified; Z97.5 Presence of (intrauterine) contraceptive device; R00.0 Tachycardia, unspecified; I45.10 Unspecified right bundle-branch block; R94.31 Abnormal electrocardiogram [ECG] [EKG]
CPT/HCPCS: 36415; 71045; 71275; 80053; 81025; 83605; 83735; 85025; 85380; 85610; 85730; 93005; 94640; 96361; 96365; 96367; 96375; 99284; A9270; J0456; J0696; J1885; J2405; J2919; J7030; J7050; Q9967